=== PATIENT | female | born 1935 | race Caucasian/White ===

== ENCOUNTER 2017-01-13 15:29 | Inpatient (IN) | payer MEDICARE, BC ==
[2017-01-13] MEDS ORDERED: DEXTROSE 50%-WATER SYRINGE 12.5 GM/25 ML DOSE IV PRN (16:07)
[2017-01-13] MEDS ORDERED: DEXTROSE 40% GEL 15 GM TUBE X 2 PO PRN (16:07)
[2017-01-13] MEDS ORDERED: DEXTROSE 40% GEL 15 GM TUBE PO PRN (16:07)
[2017-01-13] MEDS ORDERED: DEXTROSE 50%-WATER SYRINGE 25 GM/50 ML DOSE IV PRN (16:07)
[2017-01-13] MEDS ORDERED: GLUCAGON,HUMAN RECOMB 1 MG INJ IM PRN (16:07)
[2017-01-13] MEDS ORDERED: NORMAL SALINE 1000 ML 1,000 ML IV PRN ×2 (16:08→16:22)
[2017-01-13] MEDS ORDERED: ACETAMINOPHEN 325 MG TABLET PO PRN (16:22)
[2017-01-13] MEDS ORDERED: NITROGLYCERIN 0.4 MG/TAB 25 TAB/BOTTLE SL PRN ×2 (16:27→17:42)
--- NOTE | 2017-01-13 16:47 | PDOC H&P ---
History of Present Illness Admission Date/PCP: 01/13/17 15:29 MASOUD GALEAS, Patient complains of: Nausea dizziness and near passing out History of Present Illness: KENRICK URBINA is a 81 year old female with significant past medical history who was in her usual state of health until apparently today when coming to the office became very nauseous he is oriented she did not have any vomiting. She has been receiving antibiotics as an outpatient for her urinary tract infection which apparently don't seem to be resolving her symptoms. She was seen today in the office was found to be in acute distress and was referred to the hospital for further evaluation and treatment. Most probably related to failure of an outpatient treatment Past Medical History Cardiac Medical History: Reports: Atrial Fibrillation, Congestive Heart Failure , Coronary Artery Disease, Myocardial Infarction, Hyperlipidema, Hypertension Pulmonary Medical History: Reports: Bronchitis Denies: Asthma, Chronic Obstructive Pulmonary Disease (COPD), Pneumonia Neurological Medical History: Denies: Ischemic CVA, Migraine, Seizures Endocrine Medical History: Reports: Diabetes Mellitus Type 2 Renal/ Medical History: Reports: Chronic Kidney Disease Musculoskeltal Medical History: Reports: Arthritis Skin Medical History: Reports: Eczema Psychiatric Medical History: Reports: Depression Hematology: Reports: Anemia Past Surgical History Past Surgical History: Reports: Appendectomy, Cardiac Catheterization - 2011, stents x2, Coronary Stent - x2, Hysterectomy, Tubal Ligation Denies: Adenoidectomy Social History Information Source: Patient Lives with: Family Smoking Status: Never Smoker Frequency of Alcohol Use: None Hx Recreational Drug Use: No Drugs: None Hx Prescription Drug Abuse: No - Advance Directive Resuscitation Status: Do Not Resuscitate Family History Family History: Reviewed & Not Pertinent Parental Family History Reviewed: Yes Children Family History Reviewed: Yes Sibling(s) Family History Reviewed.: Yes Medication/Allergy Home Medications: Amiodarone HCl 200 mg PO BID 08/14/16 Apixaban [Eliquis 2.5 mg Tablet] 2.5 mg PO BID 08/14/16 Aspirin 81 mg PO DAILY 08/14/16 Atorvastatin Calcium [Lipitor 80 mg Tablet] 80 mg PO DAILY 08/14/16 Cyclosporine 0.05% Oph Emulsio [Restasis 0.05% Opthalmic Drope[place]] 1 drop OU DAILY 08/14/16 Furosemide [Lasix 80 mg Tablet] 80 mg PO DAILY 08/14/16 Insulin Detemir [Levemir Insulin 300 Units/3 ml Insuln.pen] 30 unit SUBCUT QHS 08/14/16 Insulin Lispro [Humalog] 10 unit SQ AC 08/14/16 Lansoprazole [Prevacid] 30 mg PO DAILY 08/14/16 Metoprolol Tartrate [Lopressor] 50 mg PO BID 08/14/16 Nitroglycerin 0.4 mg SL Q5M PRN 08/14/16 Sennosides [Senna-Extra] 8.6 mg PO PRN PRN 08/14/16 Sertraline HCl [Zoloft] 100 mg PO DAILY 08/14/16 Furosemide [Lasix 40 mg Tablet] 40 mg PO QHS 11/08/16 Hydralazine HCl [Apresoline 50 mg Tablet] 100 mg PO TID 11/08/16 Lisinopril 5 mg PO QHS 11/08/16 Allergies/Adverse Reactions: celecoxib [From Celebrex] Allergy (Verified 11/08/16 10:14) Review of Systems All systems: as per PMH Physical Exam General appearance: PRESENT: severe distress Head exam: PRESENT: atraumatic Eye exam: PRESENT: conjunctival injection Neck exam: ABSENT: carotid bruit, JVD Respiratory exam: PRESENT: crackles Cardiovascular exam: PRESENT: irregular rhythm Pulses: PRESENT: +1 pedal pulses bilateral Vascular exam: PRESENT: normal capillary refill GI/Abdominal exam: PRESENT: soft, tenderness Extremities exam: PRESENT: tenderness Musculoskeletal exam: PRESENT: ambulatory, other Neurological exam: PRESENT: alert, awake, oriented to time Psychiatric exam: PRESENT: anxious, flat affect Skin exam: PRESENT: abrasion Assessment & Plan - Diagnosis (1) Atrial fibrillation Qualifiers: Atrial fibrillation type: persistent Qualified Code(s): I48.1 - Persistent atrial fibrillation Is this a current diagnosis for this admission?: YesPlan: Placed on the monitor, continue present medications. Obtain EKG (2) Chronic kidney disease (CKD) Qualifiers: Chronic kidney disease stage: stage 3 (moderate) Qualified Code(s): N18.3 - Chronic kidney disease, stage 3 (moderate) Is this a current diagnosis for this admission?: YesPlan: We'll start with IV fluids (3) Urinary tract infection Is this a current diagnosis for this admission?: YesPlan: Not responding and intolerant to oral antibiotics (4) Diabetes mellitus Qualifiers: Diabetes mellitus type: type 2 Diabetes mellitus complication status: with neurologic complications Diabetes mellitus terminologist insulin use: unspecified assisted insulin use status Is this a current diagnosis for this admission?: YesPlan: We'll continue with current insulin treatment (5) Congestive heart failure Qualifiers: Congestive heart failure type: diastolic Congestive heart failure chronicity: chronic Qualified Code(s): I50.32 - Chronic diastolic ( congestive) heart failure Is this a current diagnosis for this admission?: YesPlan: Continue current diuretics (6) Coronary artery disease Qualifiers: Coronary Disease-Associated Artery/Lesion type: [place] artery [place] vs. transplanted heart: [place] heart Associated angina: with stable angina Qualified Code(s): I25.118 - Atherosclerotic heart disease of [place] coronary artery with other forms of angina pectoris Is this a current diagnosis for this admission?: YesPlan: Continue current treatment (7) Vertigo Is this a current diagnosis for this admission?: YesPlan: We'll start on medications (8) Dehydration Plan: We'll start IV fluids
[2017-01-13 17:31] LABS: ALANINE AMINOTRANSFERASE 57 U/L (9-52); ALBUMIN 3.4 g/dL (3.5-5.0); ALKALINE PHOSPHATASE 95 U/L (38-126); ANION GAP 9 (5-19); ASPARTATE AMINO TRANSFERASE 44 U/L (14-36); BILIRUBIN,TOTAL 0.3 mg/dL (0.2-1.3); BLOOD UREA NITROGEN 41 mg/dL (7-20); CARBON DIOXIDE 28 mmol/L (22-30); CHLORIDE 101 mmol/L (98-107); CREATININE RESULT 2.38 mg/dL (0.52-1.25); GLUCOSE 143 mg/dL (75-110); POTASSIUM 3.9 mmol/L (3.6-5.0); SODIUM 137.9 mmol/L (137-145); TOTAL PROTEIN 5.6 g/dL (6.3-8.2)
[2017-01-13] MEDS: INSULIN LISPRO 100 UNIT/ML 3 ML VIAL SUBCUT PRN (17:41)
[2017-01-13] MEDS: APIXABAN 2.5 MG TABLET PO SCH (17:43)
[2017-01-13] MEDS: HYDRALAZINE HCL 50 MG TABLET PO SCH (17:45)
[2017-01-13] MEDS: DOCUSATE SODIUM 100 MG CAPSULE PO SCH (17:46)
[2017-01-13] MEDS ORDERED: (PENDING PHARMACY ID) (Amiodarone Hcl [Amiodarone Hcl] 200 MG) PO SCH (18:00)
[2017-01-13 18:16] LABS: APPEARANCE,URINE CLEAR; BILIRUBIN,URINE NEGATIVE (NEGATIVE); GLUCOSE, URINE NEGATIVE (NEGATIVE); KETONES,URINE NEGATIVE (NEGATIVE); LEUKOCYTE ESTERASE,URINE NEGATIVE (NEGATIVE); NITRITE,URINE NEGATIVE (NEGATIVE); PROTEIN,URINE 100 mg/dL (NEGATIVE); URINE SPECIFIC GRAVITY 1.009; UROBILINOGEN,URINE NEGATIVE mg/dL (<2.0)
[2017-01-13] MEDS: FUROSEMIDE 40 MG TABLET PO SCH (21:32)
[2017-01-13] MEDS: LISINOPRIL 5 MG TABLET PO SCH (21:33)
[2017-01-13] MEDS: ATORVASTATIN CALCIUM 80 MG TABLET PO SCH (21:33)
[2017-01-13] MEDS: AMIODARONE HCL 200 MG TABLET PO SCH (21:34)
[2017-01-13] MEDS: INSULIN DETEMIR 100 UNIT/ML 3 ML PEN SUBCUT SCH (21:36)
--- NOTE | 2017-01-13 21:45 | EKG REPORT ---
SEVERITY:- ABNORMAL ECG - SINUS RHYTHM LEFT BUNDLE BRANCH BLOCK : Confirmed by: Jaret Johnston 13-Jan-2017 21:44:48
[2017-01-13] MEDS ORDERED: METOPROLOL TARTRATE 50 MG TABLET PO SCH (22:00)
[2017-01-13 23:44] LABS: ABSOLUTE EOSINOPHILS # (AUTO) 0.2 10^3/uL (0.0-0.6); ABSOLUTE LYMPHOCYTES (AUTO) 1.4 10^3/uL (0.5-4.7); ABSOLUTE MONOCYTES (AUTO) 0.9 10^3/uL (0.1-1.4); ABSOLUTE NEUT (AUTO) 5.7 10^3/uL (1.7-8.2); BASOPHILS % (AUTO) 0.6 % (0-2); EOSINOPHILS % (AUTO) 2.1 % (0-6); HEMATOCRIT 31.1 % (36.0-47.0); HEMOGLOBIN 10.4 g/dL (12.0-15.5); HGB HCT DIFFERENCE 0.1; LYMPHOCYTES % (AUTO) 17.1 % (13-45); MEAN CORPUSCULAR HEMOGLOBIN 29.7 pg (27.0-33.4); MEAN CORPUSCULAR HGB CONC 33.3 g/dL (32.0-36.0); MEAN CORPUSCULAR VOLUME 89 fl (80-97); MONOCYTES % (AUTO) 10.4 % (3-13); RED BLOOD COUNT 3.49 10^6/uL (3.72-5.28); RED CELL DISTRIBUTION WIDTH 15.9 % (11.5-14.0); SEGMENTED NEUTROPHILS % (AUTO) 69.8 % (42-78); WHITE BLOOD COUNT 8.2 10^3/uL (4.0-10.5)
[2017-01-14 05:32] LABS: ABSOLUTE EOSINOPHILS # (AUTO) 0.2 10^3/uL (0.0-0.6); ABSOLUTE MONOCYTES (AUTO) 0.8 10^3/uL (0.1-1.4); ABSOLUTE NEUT (AUTO) 6.4 10^3/uL (1.7-8.2); BASOPHILS % (AUTO) 0.4 % (0-2); EOSINOPHILS % (AUTO) 2.3 % (0-6); HEMATOCRIT 32.1 % (36.0-47.0); HEMOGLOBIN 10.6 g/dL (12.0-15.5); HGB HCT DIFFERENCE -0.3; LYMPHOCYTES % (AUTO) 12.3 % (13-45); MEAN CORPUSCULAR HGB CONC 33.2 g/dL (32.0-36.0); MEAN CORPUSCULAR VOLUME 90 fl (80-97); MONOCYTES % (AUTO) 9.5 % (3-13); RED BLOOD COUNT 3.55 10^6/uL (3.72-5.28); RED CELL DISTRIBUTION WIDTH 16.2 % (11.5-14.0); SEGMENTED NEUTROPHILS % (AUTO) 75.5 % (42-78); WHITE BLOOD COUNT 8.5 10^3/uL (4.0-10.5)
[2017-01-14 05:42] LABS: ALANINE AMINOTRANSFERASE 51 U/L (9-52); ALBUMIN 2.8 g/dL (3.5-5.0); ALKALINE PHOSPHATASE 72 U/L (38-126); ANION GAP 9 (5-19); ASPARTATE AMINO TRANSFERASE 39 U/L (14-36); BILIRUBIN,TOTAL 0.3 mg/dL (0.2-1.3); BLOOD UREA NITROGEN 39 mg/dL (7-20); CALCIUM 8.5 mg/dL (8.4-10.2); CARBON DIOXIDE 27 mmol/L (22-30); CHLORIDE 106 mmol/L (98-107); CREATININE RESULT 2.18 mg/dL (0.52-1.25); GLUCOSE 84 mg/dL (75-110); POTASSIUM 3.7 mmol/L (3.6-5.0); SODIUM 142.3 mmol/L (137-145); TOTAL PROTEIN 4.7 g/dL (6.3-8.2)
[2017-01-14] MEDS ORDERED: INSULIN LISPRO 10 UNIT SQ SCH (08:00)
[2017-01-14] MEDS ORDERED: NORMAL SALINE 1000 ML 1,000 ML IV PRN (08:28)
[2017-01-14] MEDS ORDERED: NITROGLYCERIN 0.4 MG/TAB 25 TAB/BOTTLE SL PRN (08:28)
[2017-01-14] MEDS ORDERED: MECLIZINE HCL 25 MG TABLET PO PRN (08:28)
[2017-01-14] MEDS ORDERED: (PENDING PHARMACY ID) (Sennosides [Senna] 8.6 MG) PO PRN (08:28)
--- NOTE | 2017-01-14 08:37 | PDOC PROGRESS REPORT ---
Subjective Progress Note for:: 01/14/17 Subjective:: The patient states that she did not have a good night. She has been up and down all night going to the bathroom because of fluids and Lasix. She still has episodes of nausea with dizziness. Physical Exam Vital Signs: Temp Pulse Resp BP Pulse Ox 97.5 F 54 L 18 170/40 H 98 01/14/17 07:50 01/14/17 07:50 01/14/17 07:50 01/14/17 07:50 01/14/17 07:50 Intake & Output 01/13/17 01/14/17 01/15/17 06:59 06:59 06:59 Intake Total 2592 Balance 2592 Weight 84.2 kg General appearance: PRESENT: hard of hearing, mild distress Eye exam: PRESENT: conjunctiva pink Neck exam: ABSENT: carotid bruit, JVD Respiratory exam: PRESENT: crackles Cardiovascular exam: PRESENT: bradycardia Pulses: PRESENT: +1 pedal pulses bilateral Vascular exam: PRESENT: normal capillary refill GI/Abdominal exam: PRESENT: normal bowel sounds, soft Extremities exam: PRESENT: full ROM, tenderness Musculoskeletal exam: PRESENT: ambulatory Neurological exam: PRESENT: alert, awake Results Laboratory Results: 01/14/17 05:12 01/14/17 05:12 01/13/17 01/13/17 01/13/17 16:55 16:55 16:55 WBC Cancelled RBC Cancelled Hgb Cancelled Hct Cancelled MCV Cancelled MCH Cancelled MCHC Cancelled RDW Cancelled Plt Count Cancelled Seg Neutrophils % Cancelled Lymphocytes % Cancelled Monocytes % Cancelled Eosinophils % Cancelled Basophils % Cancelled Absolute Neutrophils Cancelled Absolute Lymphocytes Cancelled Absolute Monocytes Cancelled Absolute Eosinophils Cancelled Absolute Basophils Cancelled Sodium 137.9 Potassium 3.9 Chloride 101 Carbon Dioxide 28 Anion Gap 9 BUN 41 H Creatinine 2.38 H Est GFR ( Amer) 24 L Est GFR (Non-Af Amer) 20 L Glucose 143 H Calcium 9.0 Total Bilirubin 0.3 AST 44 H ALT 57 H Alkaline Phosphatase 95 Total Protein 5.6 L Albumin 3.4 L TSH 1.96 Urine Color Urine Appearance Urine pH Ur Specific [place] Urine Protein Urine Glucose (UA) Urine Ketones Urine Blood Urine Nitrite Ur Leukocyte Esterase Urine WBC (Auto) Urine RBC (Auto) 01/13/17 01/13/17 01/14/17 17:55 23:37 05:12 WBC 8.2 8.5 RBC 3.49 L 3.55 L Hgb 10.4 L 10.6 L Hct 31.1 L 32.1 L MCV 89 90 MCH 29.7 30.0 MCHC 33.3 33.2 RDW 15.9 H 16.2 H Plt Count 170 180 Seg Neutrophils % 69.8 75.5 Lymphocytes % 17.1 12.3 L Monocytes % 10.4 9.5 Eosinophils % 2.1 2.3 Basophils % 0.6 0.4 Absolute Neutrophils 5.7 6.4 Absolute Lymphocytes 1.4 1.0 Absolute Monocytes 0.9 0.8 Absolute Eosinophils 0.2 0.2 Absolute Basophils 0.0 0.0 Sodium Potassium Chloride Carbon Dioxide Anion Gap BUN Creatinine Est GFR ( Amer) Est GFR (Non-Af Amer) Glucose Calcium Total Bilirubin AST ALT Alkaline Phosphatase Total Protein Albumin TSH Urine Color YELLOW Urine Appearance CLEAR Urine pH 6.0 Ur Specific [place] 1.009 Urine Protein 100 H Urine Glucose (UA) NEGATIVE Urine Ketones NEGATIVE Urine Blood NEGATIVE Urine Nitrite NEGATIVE Ur Leukocyte Esterase NEGATIVE Urine WBC (Auto) 3 Urine RBC (Auto) 1 01/14/17 05:12 WBC RBC Hgb Hct MCV MCH MCHC RDW Plt Count Seg Neutrophils % Lymphocytes % Monocytes % Eosinophils % Basophils % Absolute Neutrophils Absolute Lymphocytes Absolute Monocytes Absolute Eosinophils Absolute Basophils Sodium 142.3 Potassium 3.7 Chloride 106 Carbon Dioxide 27 Anion Gap 9 BUN 39 H Creatinine 2.18 H Est GFR ( Amer) 26 L Est GFR (Non-Af Amer) 22 L Glucose 84 Calcium 8.5 Total Bilirubin 0.3 AST 39 H ALT 51 Alkaline Phosphatase 72 Total Protein 4.7 L Albumin 2.8 L TSH Urine Color Urine Appearance Urine pH Ur Specific [place] Urine Protein Urine Glucose (UA) Urine Ketones Urine Blood Urine Nitrite Ur Leukocyte Esterase Urine WBC (Auto) Urine RBC (Auto) Assessment & Plan - Diagnosis (1) Atrial fibrillation Qualifiers: Atrial fibrillation type: persistent Qualified Code(s): I48.1 - Persistent atrial fibrillation Is this a current diagnosis for this admission?: YesPlan: Presently bradycardic possibly secondary to combination of amiodarone and metoprolol. We will adjust medication dosages (2) Chronic kidney disease (CKD) Qualifiers: Chronic kidney disease stage: stage 3 (moderate) Qualified Code(s): N18.3 - Chronic kidney disease, stage 3 (moderate) Is this a current diagnosis for this admission?: YesPlan: Improved slightly with rehydration (3) Urinary tract infection Is this a current diagnosis for this admission?: YesPlan: Seemed to have resolved with antibiotics (4) Diabetes mellitus Qualifiers: Diabetes mellitus type: type 2 Diabetes mellitus complication status: with neurologic complications Diabetes mellitus terminologist insulin use: unspecified senior living insulin use status Is this a current diagnosis for this admission?: YesPlan: Controlled with insulin (5) Congestive heart failure Qualifiers: Congestive heart failure type: diastolic Congestive heart failure chronicity: chronic Qualified Code(s): I50.32 - Chronic diastolic ( congestive) heart failure Is this a current diagnosis for this admission?: Yes (6) Coronary artery disease Qualifiers: Coronary Disease-Associated Artery/Lesion type: [place] artery [place] vs. transplanted heart: [place] heart Associated angina: with stable angina Qualified Code(s): I25.118 - Atherosclerotic heart disease of [place] coronary artery with other forms of angina pectoris Is this a current diagnosis for this admission?: YesPlan: Controlled with medications. (7) Vertigo Is this a current diagnosis for this admission?: YesPlan: Recurrent. Possibly related to recent urinary tract infection with nausea and possible bradycardia induced by medication but the labyrinthitis cannot be ruled out (8) Dehydration Plan: Improved with rehydration (9) Hypertension Qualifiers: Hypertension type: renovascular hypertension Qualified Code(s): I15.0 - Renovascular hypertension Is this a current diagnosis for this admission?: YesPlan: We will add clonidine
[2017-01-14] MEDS ORDERED: 1/2 NORMAL SALINE 1,000 ML IV PRN (08:46)
[2017-01-14] MEDS ORDERED: SENNOSIDES/DOCUSATE 8.6-50 MG 1 EACH TABLET PO PRN (08:52)
[2017-01-14] MEDS ORDERED: FUROSEMIDE 80 MG TABLET PO SCH (10:00)
[2017-01-14] MEDS ORDERED: AMIODARONE HCL 200 MG TABLET PO SCH (10:00)
[2017-01-14] MEDS ORDERED: APIXABAN 2.5 MG TABLET PO SCH (10:00)
[2017-01-14] MEDS ORDERED: LANSOPRAZOLE 30 MG TAB.RAP.DR PO SCH (10:00)
[2017-01-14] MEDS ORDERED: METOPROLOL TARTRATE 50 MG TABLET PO SCH (10:00)
[2017-01-14] MEDS ORDERED: (PENDING PHARMACY ID) (Lansoprazole [Prevacid] 30 MG) PO SCH (10:00)
[2017-01-14] MEDS ORDERED: HYDRALAZINE HCL 50 MG TABLET PO SCH (10:00)
[2017-01-14] MEDS ORDERED: CYCLOSPORINE 0.05% OPH EMULSIO 0.4 ML DROPERETTE OP SCH (10:00)
[2017-01-14] MEDS ORDERED: ASPIRIN 81 MG TABLET, ENT COATED PO SCH (10:00)
[2017-01-14] MEDS ORDERED: INSULIN LISPRO 100 UNIT/ML 3 ML VIAL SUBCUT SCH (11:00)
[2017-01-14] MEDS: APIXABAN 2.5 MG TABLET PO SCH ×2 (11:07→19:21)
[2017-01-14] MEDS: LANSOPRAZOLE 30 MG TAB.RAP.DR PO SCH (11:07)
[2017-01-14] MEDS: HYDRALAZINE HCL 50 MG TABLET PO SCH ×2 (11:08→19:22)
[2017-01-14] MEDS: ASPIRIN 81 MG TABLET, CHEWABLE PO SCH (11:08)
[2017-01-14] MEDS: FUROSEMIDE 80 MG TABLET PO SCH (11:09)
[2017-01-14] MEDS: SERTRALINE HCL 50 MG TABLET PO SCH (11:09)
[2017-01-14] MEDS: DOCUSATE SODIUM 100 MG CAPSULE PO SCH ×2 (11:10→19:22)
[2017-01-14] MEDS: CYCLOSPORINE 0.05% OPH EMULSIO 0.4 ML DROPERETTE OU SCH (11:10)
[2017-01-14] MEDS: INSULIN LISPRO 100 UNIT/ML 3 ML VIAL SUBCUT SCH ×3 (11:14→19:33)
[2017-01-14] MEDS: AMIODARONE HCL 200 MG TABLET PO SCH (13:00)
--- NOTE | 2017-01-14 16:37 | Physician Advisory Note ---
Physician Advisor ProgressNote .: [facility] I have [facility] the medical record for this patient. Physician Advisor Statement: Nice documentation of 'chronic diastolic CHF', 'persistent Afib'. Possible documentation opportunities if attending agrees: 1. "Principal Dx": H&P & notes so far state "persistent Afib" as 1st dx ( which is taken as Principal Dx, the reason for pt needing to be in hospital, unless otherwise specified). - Please make sure to list as Dx #1 the dx that best explains, after study, the reason for keeping pt in hospital the first day. 2. "Chronic Kidney Disease Stage IV" (GFR at [facility] has been persistently 18-28 for the last 12mo. If her outpt baseline is not at least 30, she meets criteria for dx of stage IV currently.) 3. Medical necessity: please "paint the picture" with your documentation each day so a non-MD reviewer can understand why pt can't be managed outpt. - Please include the bolded points below under "Status" with which you agree based on your intimate understanding of this particular case. Discussion: 81yo female w/ chronic co-morbidities including chronic Afib, chronic diastolic CHF, CAD, HTN, DM-2, CKD (stage 4?) - presented 01/13 PM due to "severe distress", with UTI sx not resolving on outpt po abx tx. (+) HR 57, BP 177/46, crackles, irreg heartbeat, (+)anx/flat affect. WBC 8.2, Hgb 10.4, RDW up, AST 44, ALT 57, U/A w/(+)protein, sp grav 1.009, BUN 41, Cr 2.38, GFR <30 Attending ordered tele, EKG, I/Os, daily wts, bedrest, ur cx, labs for 01/15, O2 2L, NS @125, metoprolol at her usual 50mg bid & Amio at her usual 200mg bid, Lasix 40mg qhs, lisnopril 5mg qhs. Status: Elderly pt with serious chronic co-morbidities of chronic Afib, chronic diastolic CHF, CAD, HTN, DM-2, CKD (stage 4?) brought in initially due to "severe distress", with UTI sx not resolving on outpt po abx tx. She was not given any IV abx at time of adm because . Given IVF @125, while continued on lower than usual dose of Lasix. This was in hopes of improving her dizziness & supporting her fluid status while her nausea was likely to keep po intake low, but could certainly produce risk of acute CHF exacerb - so needed to be closely monitored. Although one might expect the end result would be increased overall fluid volume after 1 night of this tx, pt continued to have nausea & dizziness with distress. She had noticeable & persistent bradycardia in the 50s noted. She was on at least 2 meds that can slow the HR. She needs control of her Afib, as well as of her HTN which is currently not optimally controlled despite multiple agents, while allowing higher HR in hopes of improving her ongoing sx. On 01/14, attending has cut dose of metoprolol in half, while adding clonidine ( which can also slow HR but hopefully less so), increased Lasix back to her usual dose, and cut rate of IVF to 75, while keeping IV hydralazine PRN available for BP over & above her usual other BP meds. This is a 'fine-tuning on multiple levels at the same time approach', which speaks to this attending's finesse with complex pt problems but also increases the need for very close monitoring for responses. -Persistent symptomatic bradycardia can cause dizziness, presyncope, & syncope, which in this pt could produce significant trauma including devastating hip fx. -This pt's HTN is already close to hypertensive crisis levels, and a further worsening in BP, which most certainly could occur with needed cut in metoprolol dose, could produce such decompensation as nausea/vomiting, blurry vision, acute KS, acute CHF, acute CVA, among other problems. Attending will want to watch effect of today's Rx changes on her HR & BP closely while guarding against further such downturns. This is NOT a typical low-complexity syncope/nausea/dizziness case that can be expected to be kept overnight on Outpt Obs and then safely sent home the next day. Tx for at least a 2nd MN in inpatient hospital setting is medically reasonable & necessary to protect pt's health, safety, & medical condition. Appropriate for Inpt status. Thanks for your help with documentation accuracy/specificity improvement! Brit Jung MD [facility] Physician Advisor, Fellow of Hospital Medicine
[2017-01-14] MEDS ORDERED: ATORVASTATIN CALCIUM 80 MG TABLET PO SCH (18:00)
[2017-01-14] MEDS ORDERED: FUROSEMIDE 40 MG TABLET PO SCH (18:00)
[2017-01-14] MEDS: CLONIDINE HCL 0.2 MG TABLET PO SCH (19:33)
[2017-01-14] MEDS ORDERED: INSULIN DETEMIR 100 UNIT/ML 3 ML PEN SUBCUT SCH (22:00)
[2017-01-14] MEDS ORDERED: LISINOPRIL 5 MG TABLET PO SCH (22:00)
[2017-01-15] MEDS: ATORVASTATIN CALCIUM 80 MG TABLET PO SCH ×2 (00:38→21:44)
[2017-01-15] MEDS: AMIODARONE HCL 200 MG TABLET PO SCH ×3 (00:39→21:44)
[2017-01-15] MEDS: LISINOPRIL 5 MG TABLET PO SCH ×2 (00:39→21:46)
[2017-01-15] MEDS: CLONIDINE HCL 0.2 MG TABLET PO SCH ×4 (00:39→21:45)
[2017-01-15] MEDS: METOPROLOL TARTRATE 25 MG TABLET PO SCH ×3 (00:40→21:45)
[2017-01-15] MEDS: FUROSEMIDE 40 MG TABLET PO SCH ×2 (00:40→21:45)
[2017-01-15] MEDS: INSULIN DETEMIR 100 UNIT/ML 3 ML PEN SUBCUT SCH ×2 (00:41→22:51)
[2017-01-15] MEDS: INSULIN LISPRO 100 UNIT/ML 3 ML VIAL SUBCUT PRN (00:42)
[2017-01-15 05:23] LABS: ABSOLUTE EOSINOPHILS # (AUTO) 0.1 10^3/uL (0.0-0.6); ABSOLUTE NEUT (AUTO) 7.4 10^3/uL (1.7-8.2); BASOPHILS % (AUTO) 0.4 % (0-2); EOSINOPHILS % (AUTO) 1.3 % (0-6); HEMATOCRIT 31.7 % (36.0-47.0); HEMOGLOBIN 10.7 g/dL (12.0-15.5); HGB HCT DIFFERENCE 0.4; LYMPHOCYTES % (AUTO) 10.5 % (13-45); MEAN CORPUSCULAR HEMOGLOBIN 29.9 pg (27.0-33.4); MEAN CORPUSCULAR HGB CONC 33.7 g/dL (32.0-36.0); MEAN CORPUSCULAR VOLUME 89 fl (80-97); RED BLOOD COUNT 3.57 10^6/uL (3.72-5.28); RED CELL DISTRIBUTION WIDTH 15.9 % (11.5-14.0); SEGMENTED NEUTROPHILS % (AUTO) 77.8 % (42-78); WHITE BLOOD COUNT 9.6 10^3/uL (4.0-10.5)
[2017-01-15 05:37] LABS: ALANINE AMINOTRANSFERASE 46 U/L (9-52); ALBUMIN 2.7 g/dL (3.5-5.0); ALKALINE PHOSPHATASE 74 U/L (38-126); ANION GAP 9 (5-19); ASPARTATE AMINO TRANSFERASE 37 U/L (14-36); BILIRUBIN,TOTAL 0.4 mg/dL (0.2-1.3); BLOOD UREA NITROGEN 38 mg/dL (7-20); CALCIUM 8.6 mg/dL (8.4-10.2); CARBON DIOXIDE 27 mmol/L (22-30); CHLORIDE 104 mmol/L (98-107); CREATININE RESULT 1.93 mg/dL (0.52-1.25); GLUCOSE 87 mg/dL (75-110); MAGNESIUM 1.7 mg/dL (1.6-2.3); POTASSIUM 3.5 mmol/L (3.6-5.0); SODIUM 139.5 mmol/L (137-145); TOTAL PROTEIN 4.7 g/dL (6.3-8.2)
[2017-01-15] MEDS: HYDRALAZINE HCL 50 MG TABLET PO SCH ×3 (09:47→17:44)
[2017-01-15] MEDS: FUROSEMIDE 80 MG TABLET PO SCH (09:58)
[2017-01-15] MEDS: DOCUSATE SODIUM 100 MG CAPSULE PO SCH ×2 (09:58→17:44)
[2017-01-15] MEDS: POTASSIUM CHLORIDE 10 MEQ TABLET.SA PO SCH ×2 (09:58→21:45)
[2017-01-15] MEDS: APIXABAN 2.5 MG TABLET PO SCH ×2 (09:59→17:45)
[2017-01-15] MEDS: SERTRALINE HCL 50 MG TABLET PO SCH (09:59)
[2017-01-15] MEDS: LANSOPRAZOLE 30 MG TAB.RAP.DR PO SCH (09:59)
[2017-01-15] MEDS: ASPIRIN 81 MG TABLET, CHEWABLE PO SCH (10:01)
[2017-01-15] MEDS: CYCLOSPORINE 0.05% OPH EMULSIO 0.4 ML DROPERETTE OU SCH (10:05)
[2017-01-15] MEDS: INSULIN LISPRO 100 UNIT/ML 3 ML VIAL SUBCUT SCH ×3 (10:06→17:44)
--- NOTE | 2017-01-15 11:33 | PDOC PROGRESS REPORT ---
Subjective Progress Note for:: 01/15/17 Subjective:: The patient is complaining of not feeling well. She states that she did not sleep well at night because that were waking her up. She states that the dizziness seemed to be improving. She denies any further nausea or vomiting. She has been up in the chair yesterday and have walked to the bathroom Physical Exam Vital Signs: Temp Pulse Resp BP Pulse Ox 97.6 F 51 L 16 135/44 H 96 01/15/17 07:41 01/15/17 07:41 01/15/17 07:41 01/15/17 07:41 01/15/17 07:41 Intake & Output 01/14/17 01/15/17 01/16/17 06:59 06:59 06:59 Intake Total 2592 2097 Balance 2592 2097 Weight 84.2 kg 82.3 kg General appearance: PRESENT: mild distress Head exam: PRESENT: atraumatic Eye exam: PRESENT: conjunctiva pink Neck exam: ABSENT: carotid bruit, JVD Respiratory exam: PRESENT: crackles Cardiovascular exam: PRESENT: bradycardia, irregular rhythm Pulses: PRESENT: normal carotid pulses Vascular exam: PRESENT: normal capillary refill GI/Abdominal exam: PRESENT: normal bowel sounds, soft Extremities exam: PRESENT: tenderness Musculoskeletal exam: PRESENT: tenderness, other Neurological exam: PRESENT: alert, awake Results Laboratory Results: 01/15/17 04:46 01/15/17 04:46 01/15/17 01/15/17 04:46 04:46 WBC 9.6 RBC 3.57 L Hgb 10.7 L Hct 31.7 L MCV 89 MCH 29.9 MCHC 33.7 RDW 15.9 H Plt Count 175 Seg Neutrophils % 77.8 Lymphocytes % 10.5 L Monocytes % 10.0 Eosinophils % 1.3 Basophils % 0.4 Absolute Neutrophils 7.4 Absolute Lymphocytes 1.0 Absolute Monocytes 1.0 Absolute Eosinophils 0.1 Absolute Basophils 0.0 Sodium 139.5 Potassium 3.5 L Chloride 104 Carbon Dioxide 27 Anion Gap 9 BUN 38 H Creatinine 1.93 H Est GFR ( Amer) 30 L Est GFR (Non-Af Amer) 25 L Glucose 87 Calcium 8.6 Magnesium 1.7 Total Bilirubin 0.4 AST 37 H ALT 46 Alkaline Phosphatase 74 Total Protein 4.7 L Albumin 2.7 L Assessment & Plan - Diagnosis (1) Atrial fibrillation Qualifiers: Atrial fibrillation type: persistent Qualified Code(s): I48.1 - Persistent atrial fibrillation Is this a current diagnosis for this admission?: YesPlan: Presently bradycardic possibly secondary to combination of amiodarone and metoprolol. 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 vs. transplanted heart: [place] heart Associated angina: with stable angina Qualified Code(s): I25.118 - Atherosclerotic heart disease of [place] coronary artery with other forms of angina pectoris Is this a current diagnosis for this admission?: YesPlan: Controlled with medications. (7) Vertigo Is this a current diagnosis for this admission?: YesPlan: Recurrent. Possibly related to recent urinary tract infection with nausea and possible bradycardia induced by medication but the labyrinthitis cannot be ruled out (8) Dehydration Plan: After significant improvement we will stop the IV fluids (9) Hypertension Qualifiers: Hypertension type: renovascular hypertension Qualified Code(s): I15.0 - Renovascular hypertension Is this a current diagnosis for this admission?: YesPlan: Much better controlled with adjustment on blood pressure medications (10) Symptomatic bradycardia Is this a current diagnosis for this admission?: YesPlan: The bradycardia persisted even after reducing the the Toprol all to half the dose. We'll decreased the amiodarone to 100 mg twice a day
[2017-01-16] MEDS: CLONIDINE HCL 0.2 MG TABLET PO SCH ×3 (05:10→23:00)
[2017-01-16 06:22] LABS: ABSOLUTE EOSINOPHILS # (AUTO) 0.2 10^3/uL (0.0-0.6); ABSOLUTE LYMPHOCYTES (AUTO) 1.2 10^3/uL (0.5-4.7); ABSOLUTE MONOCYTES (AUTO) 0.7 10^3/uL (0.1-1.4); ABSOLUTE NEUT (AUTO) 4.4 10^3/uL (1.7-8.2); BASOPHILS % (AUTO) 0.5 % (0-2); EOSINOPHILS % (AUTO) 3.2 % (0-6); HEMATOCRIT 32.1 % (36.0-47.0); HEMOGLOBIN 10.6 g/dL (12.0-15.5); HGB HCT DIFFERENCE -0.3; LYMPHOCYTES % (AUTO) 17.7 % (13-45); MEAN CORPUSCULAR HEMOGLOBIN 29.6 pg (27.0-33.4); MEAN CORPUSCULAR HGB CONC 32.9 g/dL (32.0-36.0); MEAN CORPUSCULAR VOLUME 90 fl (80-97); MONOCYTES % (AUTO) 10.4 % (3-13); RED BLOOD COUNT 3.57 10^6/uL (3.72-5.28); RED CELL DISTRIBUTION WIDTH 16.1 % (11.5-14.0); SEGMENTED NEUTROPHILS % (AUTO) 68.2 % (42-78); WHITE BLOOD COUNT 6.5 10^3/uL (4.0-10.5)
[2017-01-16 06:42] LABS: BLOOD UREA NITROGEN 44 mg/dL (7-20); CALCIUM 8.3 mg/dL (8.4-10.2); CARBON DIOXIDE 31 mmol/L (22-30); CREATININE RESULT 2.15 mg/dL (0.52-1.25); GLUCOSE 152 mg/dL (75-110)
[2017-01-16 06:50] LABS: CHLORIDE 102 mmol/L (98-107); SODIUM 136.7 mmol/L (137-145)
[2017-01-16 06:55] LABS: ANION GAP 4 (5-19)
--- NOTE | 2017-01-16 08:40 | PDOC PROGRESS REPORT ---
Subjective Progress Note for:: 01/16/17 Subjective:: The patient states to feel much better. She was able to ambulate very little discomfort of dizziness and nausea. Heart rate is still in the mid 50s. She denies any syncope. Physical Exam Vital Signs: Temp Pulse Resp BP Pulse Ox 97.7 F 55 L 19 160/44 H 95 01/16/17 07:50 01/16/17 07:50 01/16/17 07:50 01/16/17 07:50 01/16/17 07:50 Intake & Output 01/15/17 01/16/17 01/17/17 06:59 06:59 06:59 Intake Total 2096 1170 Balance 2096 1170 Weight 82.3 kg 82 kg General appearance: PRESENT: mild distress Head exam: PRESENT: atraumatic Eye exam: PRESENT: conjunctiva pink Neck exam: ABSENT: carotid bruit Respiratory exam: PRESENT: clear to auscultation gabriel Cardiovascular exam: PRESENT: bradycardia Pulses: PRESENT: +1 pedal pulses bilateral GI/Abdominal exam: PRESENT: normal bowel sounds, soft Extremities exam: PRESENT: full ROM, tenderness Musculoskeletal exam: PRESENT: ambulatory Neurological exam: PRESENT: alert, awake Results Laboratory Results: 01/16/17 05:56 01/16/17 05:56 01/16/17 01/16/17 05:56 05:56 WBC 6.5 RBC 3.57 L Hgb 10.6 L Hct 32.1 L MCV 90 MCH 29.6 MCHC 32.9 RDW 16.1 H Plt Count 159 Seg Neutrophils % 68.2 Lymphocytes % 17.7 Monocytes % 10.4 Eosinophils % 3.2 Basophils % 0.5 Absolute Neutrophils 4.4 Absolute Lymphocytes 1.2 Absolute Monocytes 0.7 Absolute Eosinophils 0.2 Absolute Basophils 0.0 Sodium 136.7 L Potassium 4.0 Chloride 102 Carbon Dioxide 31 H Anion Gap 4 L BUN 44 H Creatinine 2.15 H Est GFR ( Amer) 27 L Est GFR (Non-Af Amer) 22 L Glucose 152 H Calcium 8.3 L 01/13/17 17:55 Clean Catch Midstream Urine Culture - Final Mixed Urogenital Carey Assessment & Plan - Diagnosis (1) Atrial fibrillation Qualifiers: Atrial fibrillation type: persistent Qualified Code(s): I48.1 - Persistent atrial fibrillation Is this a current diagnosis for this admission?: YesPlan: Presently in sinus bradycardia possibly related to medications. (2) Chronic kidney disease (CKD) Qualifiers: Chronic kidney disease stage: stage 3 (moderate) Qualified Code(s): N18.3 - Chronic kidney disease, stage 3 (moderate) Is this a current diagnosis for this admission?: YesPlan: Stable with readjustment of medications. (3) Urinary tract infection Is this a current diagnosis for this admission?: Yes (4) Diabetes mellitus Qualifiers: Diabetes mellitus type: type 2 Diabetes mellitus complication status: with neurologic complications Diabetes mellitus senior living insulin use: unspecified equipment operator intermodal yard insulin use status Is this a current diagnosis for this admission?: YesPlan: Controlled with insulin (5) Congestive heart failure Qualifiers: Congestive heart failure type: diastolic Congestive heart failure chronicity: chronic Qualified Code(s): I50.32 - Chronic diastolic ( congestive) heart failure Is this a current diagnosis for this admission?: Yes (6) Coronary artery disease Qualifiers: Coronary Disease-Associated Artery/Lesion type: [place] artery [place] vs. transplanted heart: [place] heart Associated angina: with stable angina Qualified Code(s): I25.118 - Atherosclerotic heart disease of [place] coronary artery with other forms of angina pectoris Is this a current diagnosis for this admission?: Yes (7) Vertigo Is this a current diagnosis for this admission?: YesPlan: Improving (9) Hypertension Qualifiers: Hypertension type: renovascular hypertension Qualified Code(s): I15.0 - Renovascular hypertension Is this a current diagnosis for this admission?: Yes (10) Symptomatic bradycardia Is this a current diagnosis for this admission?: YesPlan: Still bradycardic. Were attempting to adjust medications.
[2017-01-16] MEDS ORDERED: FUROSEMIDE 80 MG TABLET PO SCH (08:41)
[2017-01-16] MEDS: CYCLOSPORINE 0.05% OPH EMULSIO 0.4 ML DROPERETTE OU SCH (09:01)
[2017-01-16] MEDS: METOPROLOL TARTRATE 25 MG TABLET PO SCH ×2 (09:02→23:10)
[2017-01-16] MEDS: HYDRALAZINE HCL 50 MG TABLET PO SCH ×3 (09:02→18:17)
[2017-01-16] MEDS: SERTRALINE HCL 50 MG TABLET PO SCH (09:03)
[2017-01-16] MEDS: POTASSIUM CHLORIDE 10 MEQ TABLET.SA PO SCH ×2 (09:05→23:01)
[2017-01-16] MEDS: LANSOPRAZOLE 30 MG TAB.RAP.DR PO SCH (09:05)
[2017-01-16] MEDS: ASPIRIN 81 MG TABLET, CHEWABLE PO SCH (09:05)
[2017-01-16] MEDS: APIXABAN 2.5 MG TABLET PO SCH ×2 (09:06→18:18)
[2017-01-16] MEDS: FUROSEMIDE 40 MG TABLET PO SCH ×2 (09:06→23:01)
[2017-01-16] MEDS: DOCUSATE SODIUM 100 MG CAPSULE PO SCH ×2 (09:09→18:21)
[2017-01-16] MEDS ORDERED: AMIODARONE HCL 200 MG TABLET PO SCH (10:00)
--- NOTE | 2017-01-16 11:16 | EKG REPORT ---
SEVERITY:- ABNORMAL ECG - SINUS RHYTHM LEFT BUNDLE BRANCH BLOCK : Confirmed by: Jaret Johnston 16-Jan-2017 11:15:00
[2017-01-16] MEDS: INSULIN LISPRO 100 UNIT/ML 3 ML VIAL SUBCUT SCH ×3 (11:56→16:31)
[2017-01-16] MEDS: INSULIN LISPRO 100 UNIT/ML 3 ML VIAL SUBCUT PRN (14:12)
[2017-01-16] MEDS: LISINOPRIL 5 MG TABLET PO SCH (23:01)
[2017-01-16] MEDS: INSULIN DETEMIR 100 UNIT/ML 3 ML PEN SUBCUT SCH (23:03)
[2017-01-16] MEDS: ATORVASTATIN CALCIUM 80 MG TABLET PO SCH (23:03)
[2017-01-17] MEDS: CLONIDINE HCL 0.2 MG TABLET PO SCH (06:05)
[2017-01-17 07:20] LABS: ALANINE AMINOTRANSFERASE 59 U/L (9-52); ALBUMIN 2.8 g/dL (3.5-5.0); ALKALINE PHOSPHATASE 81 U/L (38-126); ANION GAP 9 (5-19); ASPARTATE AMINO TRANSFERASE 51 U/L (14-36); BILIRUBIN,TOTAL 0.4 mg/dL (0.2-1.3); BLOOD UREA NITROGEN 47 mg/dL (7-20); CALCIUM 8.6 mg/dL (8.4-10.2); CARBON DIOXIDE 28 mmol/L (22-30); CHLORIDE 99 mmol/L (98-107); CREATININE RESULT 2.03 mg/dL (0.52-1.25); GLUCOSE 93 mg/dL (75-110); POTASSIUM 4.1 mmol/L (3.6-5.0); SODIUM 135.7 mmol/L (137-145)
--- NOTE | 2017-01-17 08:51 | PDOC PROGRESS REPORT ---
Subjective Progress Note for:: 01/17/17 Subjective:: The patient is complaining of not feeling well. Her heart rate continues to be in the mid 40s. Discussed the option of seeing a die cleaner. Physical Exam Vital Signs: Temp Pulse Resp BP Pulse Ox 97.5 F 45 L 16 107/47 L 94 01/17/17 07:35 01/17/17 07:35 01/17/17 07:35 01/17/17 07:35 01/17/17 07:35 Intake & Output 01/16/17 01/17/17 01/18/17 06:59 06:59 06:59 Intake Total 1170 852 Balance 1170 852 Weight 82 kg 82.7 kg General appearance: PRESENT: mild distress Head exam: PRESENT: atraumatic Eye exam: PRESENT: conjunctiva pink Neck exam: ABSENT: carotid bruit, JVD Respiratory exam: PRESENT: clear to auscultation gabriel Cardiovascular exam: PRESENT: bradycardia Pulses: PRESENT: +1 pedal pulses bilateral GI/Abdominal exam: PRESENT: normal bowel sounds, soft Extremities exam: PRESENT: full ROM Musculoskeletal exam: PRESENT: tenderness Neurological exam: PRESENT: alert, awake Results Laboratory Results: 01/16/17 05:56 01/17/17 06:35 01/17/17 06:35 Sodium 135.7 L Potassium 4.1 Chloride 99 Carbon Dioxide 28 Anion Gap 9 BUN 47 H Creatinine 2.03 H Est GFR ( Amer) 28 L Est GFR (Non-Af Amer) 23 L Glucose 93 Calcium 8.6 Total Bilirubin 0.4 AST 51 H ALT 59 H Alkaline Phosphatase 81 Total Protein 5.0 L Albumin 2.8 L Assessment & Plan - Diagnosis (1) Atrial fibrillation Qualifiers: Atrial fibrillation type: persistent Qualified Code(s): I48.1 - Persistent atrial fibrillation Is this a current diagnosis for this admission?: YesPlan: Presently in sinus bradycardia possibly related to medications. (2) Chronic kidney disease (CKD) Qualifiers: Chronic kidney disease stage: stage 3 (moderate) Qualified Code(s): N18.3 - Chronic kidney disease, stage 3 (moderate) Is this a current diagnosis for this admission?: YesPlan: Stable with readjustment of medications. (3) Urinary tract infection Is this a current diagnosis for this admission?: Yes (4) Diabetes mellitus Qualifiers: Diabetes mellitus type: type 2 Diabetes mellitus complication status: with neurologic complications Diabetes mellitus long-term insulin use: unspecified long-term insulin use status Is this a current diagnosis for this admission?: YesPlan: Controlled with insulin (5) Congestive heart failure Qualifiers: Congestive heart failure type: diastolic Congestive heart failure chronicity: chronic Qualified Code(s): I50.32 - Chronic diastolic ( congestive) heart failure Is this a current diagnosis for this admission?: Yes (6) Coronary artery disease Qualifiers: Coronary Disease-Associated Artery/Lesion type: [place] artery [place] vs. transplanted heart: [place] heart Associated angina: with stable angina Qualified Code(s): I25.118 - Atherosclerotic heart disease of [place] coronary artery with other forms of angina pectoris Is this a current diagnosis for this admission?: Yes (7) Vertigo Is this a current diagnosis for this admission?: YesPlan: Improving (9) Hypertension Qualifiers: Hypertension type: renovascular hypertension Qualified Code(s): I15.0 - Renovascular hypertension Is this a current diagnosis for this admission?: YesPlan: We'll might need to readjust the medications since clonidine has been stopped and metoprolol has been decreased. (10) Symptomatic bradycardia Is this a current diagnosis for this admission?: YesPlan: Even after decreasing the dose of amiodarone and metoprolol the patient continues to be bradycardic. We will DC completely amiodarone decreased the dose of metoprolol and stop clonidine which might have some component of bradycardia. We'll discuss with cardiology about further evaluation and possible transfer for EP
[2017-01-17] MEDS ORDERED: METOPROLOL TARTRATE 25 MG TABLET PO SCH (10:00)
[2017-01-17] MEDS: INSULIN LISPRO 100 UNIT/ML 3 ML VIAL SUBCUT SCH ×3 (11:46→15:10)
[2017-01-17] MEDS: HYDRALAZINE HCL 50 MG TABLET PO SCH ×3 (11:46→18:24)
[2017-01-17] MEDS: FUROSEMIDE 40 MG TABLET PO SCH ×2 (11:47→22:19)
[2017-01-17] MEDS: LANSOPRAZOLE 30 MG TAB.RAP.DR PO SCH (11:47)
[2017-01-17] MEDS: ASPIRIN 81 MG TABLET, CHEWABLE PO SCH (11:48)
[2017-01-17] MEDS: SERTRALINE HCL 50 MG TABLET PO SCH (11:48)
[2017-01-17] MEDS: DOCUSATE SODIUM 100 MG CAPSULE PO SCH ×2 (11:48→18:23)
[2017-01-17] MEDS: APIXABAN 2.5 MG TABLET PO SCH ×2 (11:50→18:24)
[2017-01-17] MEDS: CYCLOSPORINE 0.05% OPH EMULSIO 0.4 ML DROPERETTE OU SCH (11:50)
[2017-01-17] MEDS: POTASSIUM CHLORIDE 10 MEQ TABLET.SA PO SCH ×2 (11:50→22:23)
--- NOTE | 2017-01-17 21:23 | CONSULTATION REPORT E ---
Consultation Report NAME: KENRICK URBINA : 1935 AGE: 81Y DATE: 01/17/2017 317 A TO: ESTER MARINELLI M.D. FROM: MASOUD GALEAS M.D. Requesting Physician REASON FOR CONSULT: Bradycardia. HISTORY OF PRESENT ILLNESS: The patient is an 81-year-old female with known history of coronary artery disease, hypertension, chronic kidney disease stage 4 and a history of paroxysmal atrial fibrillation, was seen by Dr. Galeas in the office for intractable nausea without vomiting. She was being treated for urinary tract infection. The patient also states that she had leg edema and also dyspnea on exertion but no chest pain or discomfort. She has no PND but did have some orthopnea which is now improved. The patient's nausea is improved, although she has some mild nausea, and the patient was found to be in sinus bradycardia with the patient's heart rate going into the high 30s when she is asleep and the heart rate remaining in the high 40s when she is awake with a stable blood pressure and the patient being asymptomatic. Note, initially the clonidine was stopped and her amiodarone was decreased to 100 mg p.o. b.i.d., but the patient continued to be bradycardic, and so all of these 3 medications have been stopped. The patient again denies any chest pain or discomfort. PAST MEDICAL HISTORY: 1. Positive for history of atrial fibrillation. She states that she had cardioversion about 2 to 3 years ago and remained in sinus rhythm. Subsequently, the patient was seen by me in May of 2016, and since her DLCO was 54% of predicted I decreased her amiodarone to 100 mg p.o. daily. But subsequently in October, she had some chest pain and had a cardiac catheterization which showed that the previously placed stent in the LAD was patent. She also was in atrial fibrillation, and she had a TE-guided cardioversion and was placed back on amiodarone 200 mg p.o. b.i.d. 2. The patient also has a history of hypertension. 3. She has a history of diabetes mellitus type 2, insulin dependent and with renal complications. 4. She has a history of MA, stent of stent in the LAD with no recent angina symptoms. Her cardiac catheterization in October of 2016 as per the [id number] showed patent arteries. 5. She has also a history of degenerative joint disease. 6. She also has a history of vertigo which is helped with meclizine. 7. She, as mentioned earlier, has a history of chronic kidney disease. It was earlier stage 3, now it is stage 4. 8. She has no history of TIA or CVA. 9. She has a history of depression. FAMILY HISTORY: Positive for cancer, coronary artery disease, and diabetes mellitus. SOCIAL HISTORY: She is a former smoker. She quit smoking in 1982. PAST SURGICAL HISTORY: Includes: 1. Appendectomy. 2. Cardiac catheterization. 3. Cataract surgery. 4. Cholecystectomy. 5. Coronary artery catheterization and stenting. 6. Hysterectomy. 7. Ovarian surgery. 8. Tubal ligation. 9. Tubal removal. MEDICATIONS: Include: 1. Tylenol 650 mg p.o. q.4 h. p.r.n. 2. Eliquis 2.5 mg p.o. b.i.d. 3. Aspirin 81 mg p.o. daily. 4. Atorvastatin 80 mg p.o. at bedtime. 5. Cyclosporine 0.05% one drop both eyes daily. 6. Dextrose glucose 40%, 15 grams and 30 grams p.o. respectively for hypoglycemia. 7. Dextrose 50%, 12.5 grams IV and 25 grams IV p.r.n. hypoglycemia. 8. Colace 100 mg p.o. b.i.d. 9. Lasix 40 mg p.o. at bedtime and 40 mg p.o. daily. 10. Glucagon 1 mg IM p.r.n. 11. Hydralazine 100 mg p.o. t.i.d. 12. Levemir insulin 27 units subcutaneously at bedtime. She is on Accu-Cheks before meals t.i.d. and at bedtime with sliding scale insulin coverage. 13. Lispro insulin 10 units subcutaneously before meals. 14. Prevacid 30 mg b.i.d. daily. 15. Lisinopril 5 mg p.o. at bedtime. 16. Meclizine 25 mg p.o. q.8 h. p.r.n. 17. Metoprolol which has been restarted at 12.5 mg p.o. q.12 h. 18. Nitrostat 1 tablet sublingually q.5 minutes p.r.n. chest pain. 19. She did receive potassium chloride 10 mEq p.o. q.12 h. 20. *------*/docusate 1 p.o. daily. 21. Zoloft 100 mg p.o. daily. REVIEW OF SYSTEMS: CONSTITUTIONAL: Denies any fever, chills, or rigors. She just has generalized fatigue. HEAD: The patient has a history of vertigo. No history of head injury. EYES: No history of amblyopia or diplopia. No history of amaurosis fugax. EARS: No history of hearing loss. No history of tinnitus. No history of recurrent ear infections. NOSE: No history of hay fever. No history of nose bleeds. No history of nasal polyps. MOUTH: No history of altered taste sensation. No ulcers in the mouth. No bleeding from the gums. THROAT: No history of odynophagia or dysphagia. No history of recurrent sore throats. SKIN: No psoriasis. No history of pruritus. No history of yellowish discoloration of the skin. No skin cancer. NECK: No enlarged neck lymph nodes. No goiter. LUNGS: No history of asthma or COPD. No history of cough or sputum production and no wheezing. No history of pulmonary embolism. No history of hemoptysis. No history of pleuritic chest pain. CARDIAC: History of hypertension. At present, the patient has sinus bradycardia. She has a history of paroxysmal atrial fibrillation, cardioverted x2 to sinus rhythm. She also has a history of coronary artery disease, history of MA, history of stents. No recent anginal symptoms. She denies any syncope. There is leg edema present, but the patient also has chronic kidney disease stage 4. She has no PND but does have some degree of orthopnea. GASTROINTESTINAL: The patient has history of GERD. No history of fatty food intolerance. No history of GI bleed. No history of abdominal pain. No history of altered bowel movements except for constipation every now and then. No history of hepatitis. No history of jaundice. MUSCULOSKELETAL: History of degenerative joint disease present. No history of collagen vascular disease. RENAL: The patient recently has had some burning micturition and is being treated for a UTI. She has a history of chronic kidney disease, at present stage 4. There is no hematuria or pyuria. There is some dysuria present. ENDOCRINE: History of diabetes mellitus type 2, insulin dependent with chronic kidney complications and also diabetic neuropathy. She has no history of hypothyroidism. No history of heat or cold intolerance. No history of excessive sweating. METABOLIC: History of moderate obesity present. History of hyperlipidemia present. VASCULAR: No history of calf or buttock claudication. No history of DVT. HEMATOLOGICAL: No history of bleeding diathesis. No history of clotting disorders. Rest of review of systems, the patient is on Eliquis 2.5 p.o. b.i.d. for her paroxysmal atrial fibrillation. DISPOSITION: The patient is a DNR. Her [id number] is her surrogate healthcare decision maker. ALLERGIES: She is allergic to: 1. CIPROFLOXACIN. 2. CELEBREX. PHYSICAL EXAMINATION: GENERAL: The patient is moderately obese. VITAL SIGNS: She is afebrile with a temperature of 97.5 degrees Fahrenheit. Pulse is 45 beats per minute. Blood pressure is 107/47, subsequently going went up to 111/49. Respirations are 20 per minute. O2 saturations are 94% on room air. HEAD: Atraumatic/normocephalic. EYES: Pupils are equal, round, regular, reactive to light and accommodation. Extraocular movements are normal. There is no conjunctival pallor. There is no scleral icterus. There is no nystagmus. EARS: Tympanic membranes are intact. External auditory canals are clear. NOSE: There is no inflammation of the nasal mucous membranes. There is no deviated nasal septum. There is no nasal polyp. MOUTH: Mucous membranes of the mouth are moist. Tongue is moist. There is no ulcer. There is no bleeding from the gums. THROAT: There is no redness of the oropharynx. There are no exudates in the throat. SKIN: There are no skin rashes. There are no skin lesions. There is no petechia or ecchymosis. NECK: Supple. There is no JVD. Carotids are equal. There is no bruit. There is no lymphadenopathy. There is no goiter. Trachea is central. There is no JVD. LUNGS: Clear to auscultation/percussion. HEART: S1, S2 is heard. There is no S4 gallop. There is no S3 gallop. There is a systolic murmur in the left sternal border and the apex. There is no rub. ABDOMEN: Soft, obese, nontender. There is no hepatosplenomegaly. Bowel sounds are well heard. There are no tender areas or masses. EXTREMITIES: Deep femorals are diminished. There is no femoral bruit. There is no cyanosis or clubbing. Pedal pulses are decreased. There is no pedal edema. There is no DVT or cellulitis. There is no calf tenderness. CENTRAL NERVOUS SYSTEM: The patient is conscious, awake, alert, oriented x3 with no focal deficit. PSYCHIATRIC: The patient's judgement and insight are intact. Her affect is normal. Note, that the patient's clonidine and amiodarone has been discontinued, and the patient's metoprolol has been decreased to 12.5 mg p.o. b.i.d., but the morning dose today was held as per my instructions. DIAGNOSTIC DATA: The patient's EKG shows sinus rhythm, rate of 52 beats per minute and left bundle branch block pattern. The patient's EKG done yesterday showed sinus bradycardia at a rate of 55 beats per minute, left bundle branch block pattern. The patient's sodium is 135.7, potassium 4.1, chloride 99, CO2 is 28, the patient's BUN is 47, creatinine is 2.03, GFR is reduced at 23 mL which is chronic kidney disease stage 4. The patient's glucose is 93. The patient's total bilirubin 0.4, her direct bilirubin is 0, her AST elevated at 51, ALT is elevated at 59, alkaline phosphatase is normal at 81, total protein is 5.0, albumin is 2.8. Her TSH is 1.96. The patient's white count is 6,500, hemoglobin is 10.6, hematocrit is 32.1, and platelet count is 159,000. IMPRESSION: 1. Sinus bradycardia secondary to multiple *------* teresa slowing agents such as amiodarone and clonidine and also a high dose of metoprolol. Note that the amiodarone has been stopped, as well as her clonidine has been discontinued. The patient is on a small dose of Lopressor. 2. Paroxysmal atrial fibrillation, at present sinus bradycardia. 3. Abnormal liver function tests. This is another reason that the patient's amiodarone should be stopped. 4. Hypertension, fairly well controlled. 5. Coronary artery disease, history of stents with no anginal symptoms. 6. Diabetes mellitus type 2, insulin dependent with chronic kidney complication and neuropathy. 7. Chronic kidney disease stage 4. 8. Urinary tract infection being treated. 9. Vertigo. 10. Depression. 11. Hyperlipidemia. RECOMMENDATIONS: Will discontinue the Lopressor for now and discontinue the clonidine. The amiodarone should be discontinued, not only because of bradycardia but due to abnormal liver function tests. Continue Eliquis. Once her heart rate comes up, I would increase the patient's Lopressor. The management strategy here is to keep the patient under rate control since she is on Eliquis. Continue her insulin. Continue her Lasix. Continue her lisinopril at a small dose. Continue hydralazine. Note, her medications have been reviewed and discussed with Dr. Galeas, the attending physician on the case. I suspect that it might take some time for the patient's heart rate to come up since the patient is on amiodarone which may take at least a week or so to get the heart rate up. In the meantime, we will stop the patient's metoprolol. Continue the patient's atorvastatin as being done now. Continue Zoloft for depression. Note 45 minutes spent on this patient with more than 50% of the time spent in direct patient care and also reviewing the patient's medications and adjusting the patient's medications, also coordinating care with her other care giving providers on the case. Discussed with the patient and the patient's [id number] who is knowledgeable about the patient's history. Note, another 10 months were spent talking to Dr. Goldsmith, who is a magnetic tape typewriter operator who last saw the patient recently. I have discussed the treatment plan with him and told him that I have stopped the amiodarone, and because of abnormal LFTs and because of bradycardia the other medications have been held or decreased. He is agreeable with the treatment plan, and he said that the plan should now be to keep the patient from going into atrial fibrillation, to get her under rate control, and if she is very symptomatic, then may be a third cardioversion attempted. All of this has been discussed with the patient and the patient's family in detail, with a total of 10 minutes spent on discussions with Dr. Goldsmith, magnetic tape typewriter operator at [facility] from [place], [place]. Will follow with you. DICTATING PHYSICIAN: ESTER MARINELLI M.D. [id number] PHY#: [id number] ID: [id number] JOB#: [id number] ACCT: [id number] cc:ESTER MARINELLI M.D. >
[2017-01-17] MEDS: LISINOPRIL 5 MG TABLET PO SCH (22:23)
[2017-01-17] MEDS: INSULIN DETEMIR 100 UNIT/ML 3 ML PEN SUBCUT SCH (22:23)
[2017-01-18 05:18] LABS: CHOLESTEROL 125.78 mg/dL (0-200); Direct HDL 57 mg/dL (>40); TRIGLYCERIDES 144 mg/dL (<150)
[2017-01-18 05:29] LABS: DIRECT LDL 32 mg/dL (<100)
[2017-01-18] MEDS: INSULIN LISPRO 100 UNIT/ML 3 ML VIAL SUBCUT SCH ×3 (10:58→15:19)
[2017-01-18] MEDS: SERTRALINE HCL 50 MG TABLET PO SCH (11:03)
[2017-01-18] MEDS: LANSOPRAZOLE 30 MG TAB.RAP.DR PO SCH (11:03)
[2017-01-18] MEDS: HYDRALAZINE HCL 50 MG TABLET PO SCH ×3 (11:04→18:08)
[2017-01-18] MEDS: POTASSIUM CHLORIDE 10 MEQ TABLET.SA PO SCH ×2 (11:04→22:14)
[2017-01-18] MEDS: DOCUSATE SODIUM 100 MG CAPSULE PO SCH ×2 (11:05→18:09)
[2017-01-18] MEDS: FUROSEMIDE 40 MG TABLET PO SCH ×2 (11:05→22:14)
[2017-01-18] MEDS: ASPIRIN 81 MG TABLET, CHEWABLE PO SCH (11:05)
[2017-01-18] MEDS: CYCLOSPORINE 0.05% OPH EMULSIO 0.4 ML DROPERETTE OU SCH (11:06)
[2017-01-18] MEDS: APIXABAN 2.5 MG TABLET PO SCH ×2 (11:06→18:09)
--- NOTE | 2017-01-18 14:32 | PDOC PROGRESS REPORT ---
Subjective Progress Note for:: 01/18/17 Subjective:: Feels fatigued but better than yesterday. Physical Exam Vital Signs: Temp Pulse Resp BP Pulse Ox 97.5 F 47 L 16 132/39 H 97 01/18/17 12:05 01/18/17 12:05 01/18/17 12:05 01/18/17 12:05 01/18/17 12:05 Intake & Output 01/17/17 01/18/17 01/19/17 06:59 06:59 06:59 Intake Total 852 1385 Balance 852 1385 Weight 82.7 kg 81.3 kg General appearance: PRESENT: no acute distress Eye exam: PRESENT: conjunctiva pink. ABSENT: scleral icterus Mouth exam: PRESENT: moist, tongue midline Neck exam: ABSENT: JVD Respiratory exam: PRESENT: clear to auscultation gabriel. ABSENT: rales, rhonchi, wheezes Cardiovascular exam: PRESENT: bradycardia. ABSENT: diastolic murmur, rubs, systolic murmur GI/Abdominal exam: PRESENT: normal bowel sounds, soft. ABSENT: distended, guarding, mass, organolmegaly, rebound, tenderness Extremities exam: ABSENT: pedal edema Neurological exam: PRESENT: alert, awake, oriented to person, oriented to place , oriented to time, oriented to situation Psychiatric exam: PRESENT: appropriate affect Skin exam: PRESENT: dry, intact, warm. ABSENT: cyanosis, rash Results Laboratory Results: 01/16/17 05:56 01/17/17 06:35 01/18/17 04:49 Triglycerides 144 Cholesterol 125.78 LDL Cholesterol Direct 32 VLDL Cholesterol 29.0 HDL Cholesterol 57 Assessment & Plan - Diagnosis (1) Symptomatic bradycardia Is this a current diagnosis for this admission?: YesPlan: Most likely secondary to the medications amiodarone, Toprol and clonidine all of which been stopped. Patient reports she is feeling better but still feeling fatigued. (2) Atrial fibrillation Qualifiers: Atrial fibrillation type: persistent Qualified Code(s): I48.1 - Persistent atrial fibrillation Is this a current diagnosis for this admission?: YesPlan: Patient is still bradycardic. (3) Diabetes mellitus Qualifiers: Diabetes mellitus type: type 2 Diabetes mellitus complication status: with neurologic complications Diabetes mellitus half-way insulin use: unspecified half-way insulin use status Is this a current diagnosis for this admission?: YesPlan: Sugars have ranged from 100-185. Continue with Levemir and sliding scale insulin. (4) Hypertension Qualifiers: Hypertension type: renovascular hypertension Qualified Code(s): I15.0 - Renovascular hypertension Is this a current diagnosis for this admission?: Yes (5) Chronic kidney disease (CKD) Qualifiers: Chronic kidney disease stage: stage 3 (moderate) Qualified Code(s): N18.3 - Chronic kidney disease, stage 3 (moderate) Is this a current diagnosis for this admission?: YesPlan: Creatinine is elevated but has remained stable. - Time Time Spent with patient: 25-34 minutes - Inpatient Certification Medical Necessity: Need Close Monitoring Due to Risk of Patient Decompensation
[2017-01-18] MEDS: LISINOPRIL 5 MG TABLET PO SCH (22:14)
[2017-01-18] MEDS: INSULIN DETEMIR 100 UNIT/ML 3 ML PEN SUBCUT SCH (22:15)
--- NOTE | 2017-01-18 23:18 | PROGRESS NOTE E ---
Progress Note NAME: KENRICK URBINA : 1935 AGE: 81Y DATE: 01/18/2017 ROOM: 317 SUBJECTIVE: The patient's heart rate seems to be in the high 40s, is 47. She feels better than yesterday but still a little fatigued. There is no PND or orthopnea today. There is no chest pain or discomfort. There is no recurrence of atrial fibrillation, the patient being in sinus bradycardia. There are no palpitations. There are no TIA or CVA symptoms. There is no bleeding on Eliquis. The patient denies any shortness of breath. OBJECTIVE: GENERAL: On examination, the patient is moderately obese. VITAL SIGNS: She is afebrile with a temperature of 97.5, pulse is 47 beats per minute, blood pressure is 132/39, respirations are 16 per minute and 02 saturations are 97% on room air. HEENT: Head is atraumatic, normocephalic. Eyes: Pupils are equal, round, regular and reactive to light and accommodation. Extraocular movements are normal. There is no conjunctival pallor. There is no scleral icterus. There is no nystagmus. ENT is negative. NECK: Supple. There is no JVD. Carotids are equal. There is no bruit. There is no goiter. There is no lymphadenopathy. Trachea is central. LUNGS: Clear to auscultation and percussion. HEART: S1 and S2 are heard. There is no S4 gallop. There is no S3 gallop. There is a systolic murmur in the left sternal border and the apex. There is no rub. ABDOMEN: Soft, obese, nontender. There is no hepatosplenomegaly. Bowel sounds are well heard. There are no tender areas or masses. EXTREMITIES: Femorals are deep. Femorals are diminished. There are no femoral bruits. There is no cyanosis or clubbing. Pedal pulses are decreased. There is no pedal edema. There is no DVT or cellulitis. There is no calf tenderness. CENTRAL NERVOUS SYSTEM: The patient is conscious, awake, alert and oriented x3 with no focal deficits. PSYCHIATRIC: The patient's judgment and insight are intact. Her affect is normal. DIAGNOSTIC DATA: The patient's blood sugars are 134, 199, and 181. IMPRESSION: 1. The patient's sinus bradycardia is secondary to multiple *------* teresa blocking slowing agents such as amiodarone and clonidine and also metoprolol. All of these have been stopped and it might take a few days for the heart rate to come up. 2. Paroxysmal atrial fibrillation. At present, sinus bradycardia. 3. Abnormal liver function tests. This is another reason that the patient's amiodarone has been stopped. 4. Hypertension, well controlled. 5. Coronary artery disease, history of stents with no anginal symptoms. 6. Diabetes mellitus type 2, insulin dependent with chronic kidney complications and neuropathy. 7. Chronic kidney disease stage 4. 8. Urinary tract infection being treated. 9. Vertigo, no recurrence this admission. 10. Depression. 11. Hyperlipidemia. RECOMMENDATIONS: Continue to hold clonidine, metoprolol and amiodarone. Will see if the patient's heart rate improves tomorrow, in which case we might start her on a small dose of amiodarone. We will talk to the [id number] and see if they can buy an electronic blood pressure machine which can also count the pulse, and the patient has been instructed to call me if the pulse rate goes up so that we can increase the medications as an outpatient. We will recheck the patient's liver function tests. Note that 30 minutes spent on this patient with more than 50% of the time spent on direct patient care, reviewing the patient's medications and also discussions with the other caregivers on the case. This involved moderate complex decision making, since there is always a chance that the patient can convert back into atrial fibrillation with rapid ventricular response. Will follow with you. Thanking you. DICTATING PHYSICIAN: ESTER MARINELLI M.D. [id number] PHY#: [id number] ID: [id number] JOB#: [id number] ACCT: [id number] cc: >
[2017-01-19 05:17] LABS: ABSOLUTE BASOPHILS # (AUTO) 0.1 10^3/uL (0.0-0.2); ABSOLUTE EOSINOPHILS # (AUTO) 0.2 10^3/uL (0.0-0.6); ABSOLUTE MONOCYTES (AUTO) 0.6 10^3/uL (0.1-1.4); ABSOLUTE NEUT (AUTO) 4.7 10^3/uL (1.7-8.2); BASOPHILS % (AUTO) 0.9 % (0-2); EOSINOPHILS % (AUTO) 2.4 % (0-6); HEMATOCRIT 33.6 % (36.0-47.0); HEMOGLOBIN 11.1 g/dL (12.0-15.5); HGB HCT DIFFERENCE -0.3; LYMPHOCYTES % (AUTO) 14.7 % (13-45); MEAN CORPUSCULAR HEMOGLOBIN 29.6 pg (27.0-33.4); MEAN CORPUSCULAR HGB CONC 33.2 g/dL (32.0-36.0); MEAN CORPUSCULAR VOLUME 89 fl (80-97); MONOCYTES % (AUTO) 9.7 % (3-13); RED BLOOD COUNT 3.76 10^6/uL (3.72-5.28); RED CELL DISTRIBUTION WIDTH 15.9 % (11.5-14.0); SEGMENTED NEUTROPHILS % (AUTO) 72.3 % (42-78); WHITE BLOOD COUNT 6.5 10^3/uL (4.0-10.5)
[2017-01-19 05:59] LABS: ANION GAP 9 (5-19); BLOOD UREA NITROGEN 52 mg/dL (7-20); CALCIUM 8.7 mg/dL (8.4-10.2); CARBON DIOXIDE 25 mmol/L (22-30); CHLORIDE 103 mmol/L (98-107); GLUCOSE 131 mg/dL (75-110); POTASSIUM 4.1 mmol/L (3.6-5.0); SODIUM 136.5 mmol/L (137-145)
[2017-01-19] MEDS: INSULIN LISPRO 100 UNIT/ML 3 ML VIAL SUBCUT SCH ×3 (10:29→16:17)
[2017-01-19] MEDS: CYCLOSPORINE 0.05% OPH EMULSIO 0.4 ML DROPERETTE OU SCH (10:36)
[2017-01-19] MEDS: DOCUSATE SODIUM 100 MG CAPSULE PO SCH ×2 (10:36→17:52)
[2017-01-19] MEDS: LANSOPRAZOLE 30 MG TAB.RAP.DR PO SCH (10:36)
[2017-01-19] MEDS: ASPIRIN 81 MG TABLET, CHEWABLE PO SCH (10:36)
[2017-01-19] MEDS: HYDRALAZINE HCL 50 MG TABLET PO SCH ×3 (10:37→17:51)
[2017-01-19] MEDS: POTASSIUM CHLORIDE 10 MEQ TABLET.SA PO SCH ×2 (10:37→22:30)
[2017-01-19] MEDS: SERTRALINE HCL 50 MG TABLET PO SCH (10:37)
[2017-01-19] MEDS: FUROSEMIDE 40 MG TABLET PO SCH ×2 (10:37→22:29)
[2017-01-19] MEDS: APIXABAN 2.5 MG TABLET PO SCH ×2 (10:38→17:52)
--- NOTE | 2017-01-19 11:19 | PDOC PROGRESS REPORT ---
Subjective Progress Note for:: 01/19/17 Subjective:: Complains of some discomfort in her right ear. Physical Exam Vital Signs: Temp Pulse Resp BP Pulse Ox 97.3 F 46 L 16 159/49 H 100 01/19/17 08:03 01/19/17 08:03 01/19/17 08:03 01/19/17 08:03 01/19/17 08:03 Intake & Output 01/18/17 01/19/17 01/20/17 06:59 06:59 06:59 Intake Total 1385 1205 Output Total 700 Balance 1385 505 Weight 81.3 kg 80.1 kg General appearance: PRESENT: no acute distress Eye exam: PRESENT: conjunctiva pink. ABSENT: scleral icterus Ear exam: PRESENT: normal external ear exam Mouth exam: PRESENT: moist, tongue midline Neck exam: ABSENT: JVD Respiratory exam: PRESENT: clear to auscultation gabriel. ABSENT: rales, rhonchi, wheezes Cardiovascular exam: PRESENT: bradycardia. ABSENT: diastolic murmur, rubs, systolic murmur GI/Abdominal exam: PRESENT: normal bowel sounds, soft. ABSENT: distended, guarding, mass, organolmegaly, rebound, tenderness Extremities exam: ABSENT: calf tenderness, clubbing, pedal edema Neurological exam: PRESENT: alert, awake, oriented to person, oriented to place , oriented to time, oriented to situation Psychiatric exam: PRESENT: appropriate affect Skin exam: PRESENT: dry, intact, warm. ABSENT: cyanosis, rash Results Laboratory Results: 01/19/17 04:42 01/19/17 04:42 01/19/17 01/19/17 04:42 04:42 WBC 6.5 RBC 3.76 Hgb 11.1 L Hct 33.6 L MCV 89 MCH 29.6 MCHC 33.2 RDW 15.9 H Plt Count 156 Seg Neutrophils % 72.3 Lymphocytes % 14.7 Monocytes % 9.7 Eosinophils % 2.4 Basophils % 0.9 Absolute Neutrophils 4.7 Absolute Lymphocytes 1.0 Absolute Monocytes 0.6 Absolute Eosinophils 0.2 Absolute Basophils 0.1 Sodium 136.5 L Potassium 4.1 Chloride 103 Carbon Dioxide 25 Anion Gap 9 BUN 52 H Creatinine 2.10 H Est GFR ( Amer) 27 L Est GFR (Non-Af Amer) 23 L Glucose 131 H Calcium 8.7 Assessment & Plan - Diagnosis (1) Symptomatic bradycardia Is this a current diagnosis for this admission?: YesPlan: Most likely secondary to the medications amiodarone, Toprol and clonidine all of which been stopped. The patient's pulse is in to the 40s now and is improving but she still felt somewhat tired. We'll continue to monitor for at least another 24 hours (2) Atrial fibrillation Qualifiers: Atrial fibrillation type: persistent Qualified Code(s): I48.1 - Persistent atrial fibrillation Is this a current diagnosis for this admission?: YesPlan: Patient is still bradycardic. 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 Continue with Levemir and sliding scale insulin. (4) Hypertension Qualifiers: Hypertension type: renovascular hypertension Qualified Code(s): I15.0 - Renovascular hypertension Is this a current diagnosis for this admission?: Yes (5) Chronic kidney disease (CKD) Qualifiers: Chronic kidney disease stage: stage 3 (moderate) Qualified Code(s): N18.3 - Chronic kidney disease, stage 3 (moderate) Is this a current diagnosis for this admission?: YesPlan: Creatinine is elevated but has remained stable. (6) Otitis Is this a current diagnosis for this admission?: YesPlan: We'll give Cortisporin otic drops - Time Time Spent with patient: 25-34 minutes - Inpatient Certification Medical Necessity: Need Close Monitoring Due to Risk of Patient Decompensation
[2017-01-19] MEDS: NEOMY SULF/POLYMYX B SULF/HC OTIC SUSP 10 ML AD SCH ×4 (11:27→22:30)
--- NOTE | 2017-01-19 21:33 | PROGRESS NOTE E ---
Progress Note NAME: KENRICK URBINA : 1935 AGE: 81Y DATE: 01/19/2017 ROOM: 317 SUBJECTIVE: Note that the patient is sitting up in bed stating that she feels much better. There are no symptoms of difficulty urinating. She denies any shortness of breath. Her heart rate still is on the bradycardic side. Although it is recorded as the heart rate being 48, when I saw the patient, it goes between 50 to 60 beats per minute. The patient denies any chest pain or discomfort. There is no PND or orthopnea or leg edema. There is no chest pain or discomfort. There is no recurrence of atrial fibrillation. The patient states the nausea has resolved. OBJECTIVE: GENERAL: On examination, the patient is moderately obese, in no acute distress. VITAL SIGNS: She is afebrile with a temperature of 97.3 degrees Fahrenheit. Pulse is at present 56 beats per minute. Blood pressure is 150/44. Respirations are 16 per minute. O2 saturations are 98% on room air. HEAD: Atraumatic/normocephalic. EYES: Pupils are equal, round, regular, reactive to light and accommodation. Extraocular movements are normal. There is no conjunctival pallor. There is no scleral icterus. There is no nystagmus. EARS, NOSE, AND THROAT: Negative. NECK: The neck is supple. There is no JVD. Carotids are equal. There is no bruit. There is no goiter. There is no lymphadenopathy. Trachea is central. LUNGS: Clear to auscultation and percussion. HEART: S1, S2 is heard. There is no S4 gallop. There is no S3 gallop. There is systolic murmur in the left sternal border and the apex. There is no rub. ABDOMEN: Soft, obese, nontender. There is no hepatosplenomegaly. Bowel sounds are well heard. There are no tender areas or masses. EXTREMITIES: Femorals are deep. Femorals are diminished. There is no femoral bruit. There is no cyanosis or clubbing. Pedal pulses are decreased. There is no pedal edema. There is no DVT or cellulitis. There is no calf tenderness. CENTRAL NERVOUS SYSTEM: The patient is conscious, awake, alert, oriented x3 with no focal deficits. PSYCHIATRIC: The patient's judgement and insight are intact. Her affect is normal. DIAGNOSTIC DATA: The patient's white count is 6,500, hemoglobin is 11.1, hematocrit is 33.6, and the platelet count is 156,000. The patient's sodium is 136.5, potassium is 4.1, chloride is 103, CO2 is 25, the patient's BUN is 52, creatinine is 2.10, GFR is reduced at 23 which is chronic kidney disease stage 4, the patient's calcium is 8.7, and the glucose is 141. IMPRESSION: 1. SINUS BRADYCARDIA STILL PERSIST, BUT THE HEART RATE SEEMS TO BE SLIGHTLY IMPROVING. NOTE THAT CLONIDINE, BETA ZEFERINO, AND AMIODARONE HAVE ALL BEEN DISCONTINUED, AND THE PATIENT'S THYROID FUNCTIONS ARE NORMAL. 2. PAROXYSMAL ATRIAL FIBRILLATION, AT PRESENT IN SINUS BRADYCARDIA. 3. ABNORMAL LIVER FUNCTION TESTS. WILL RE-ASSESS THE LIVER FUNCTION TESTS IN THE A.M. 4. HYPERTENSION, WELL CONTROLLED. 5. CORONARY ARTERY DISEASE AND HISTORY OF STENTS WITH NO ANGINAL SYMPTOMS. 6. 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 7. CHRONIC KIDNEY DISEASE STAGE 4. 8. URINARY TRACT INFECTION, PATIENT BEING TREATED AND IS ASYMPTOMATIC. 9. VERTIGO, NO RECURRENCE THIS ADMISSION. 10. DEPRESSION. 11. HYPERLIPIDEMIA. PLAN: Yesterday the patient had her lipid levels done. Her triglycerides were 124, her total cholesterol was 125.78, her LDL cholesterol is very good at 32, HDL cholesterol is very good at 57. Hence, the patient has good lipid levels, but in view of the patient's abnormal liver function tests, the amiodarone and the statin have been discontinued. Will recheck the patient's liver function tests in the a.m. As mentioned earlier, will continue to stop the clonidine, metoprolol, and amiodarone. It is still not the right time, in view of the patient's heart rate, to restart the patient on a beta zeferino. Will ambulate the patient to see if this gets the patient's heart rate up. The next 2 weeks the patient needs to be very vigilant about her heart rate to make sure that there is no recurrence of atrial fibrillation. Note, 30 minutes spent on this patient with more than 50% of the time spent in direct patient care, reviewing the patient's medications, and also discussions with other caregivers on the case and also discussion of the lab results with the patient. Will follow with you. DICTATING PHYSICIAN: ESTER MARINELLI M.D. [id number] PHY#: [id number] ID: [id number] JOB#: [id number] ACCT: [id number] cc:ESTER MARINELLI M.D. >
[2017-01-19] MEDS: LISINOPRIL 5 MG TABLET PO SCH (22:30)
[2017-01-19] MEDS: INSULIN DETEMIR 100 UNIT/ML 3 ML PEN SUBCUT SCH (22:31)
[2017-01-20 05:20] LABS: ALANINE AMINOTRANSFERASE 62 U/L (9-52); ALBUMIN 2.5 g/dL (3.5-5.0); ALKALINE PHOSPHATASE 80 U/L (38-126); ANION GAP 10 (5-19); ASPARTATE AMINO TRANSFERASE 50 U/L (14-36); BILIRUBIN,TOTAL 0.3 mg/dL (0.2-1.3); BLOOD UREA NITROGEN 54 mg/dL (7-20); CALCIUM 8.8 mg/dL (8.4-10.2); CARBON DIOXIDE 24 mmol/L (22-30); CHLORIDE 102 mmol/L (98-107); CREATININE RESULT 2.32 mg/dL (0.52-1.25); GLUCOSE 94 mg/dL (75-110); POTASSIUM 4.2 mmol/L (3.6-5.0); TOTAL PROTEIN 5.1 g/dL (6.3-8.2)
--- NOTE | 2017-01-20 08:37 | PDOC DISCHARGE SUMMARY ---
General - Admit/Disc Date/PCP Admission Date/Primary Care Provider: 01/13/17 15:29 MASOUD GALEAS, Discharge Date: 01/20/17 - Discharge Diagnosis (1) Atrial fibrillation Is this a current diagnosis for this admission?: YesSummary: Rate controlled (2) Chronic kidney disease (CKD) Is this a current diagnosis for this admission?: YesSummary: Stable. We will continue with gentle diuretics (3) Urinary tract infection Is this a current diagnosis for this admission?: Yes (4) Diabetes mellitus Is this a current diagnosis for this admission?: YesSummary: Continue home dose of insulin needs and no starch diet (5) Congestive heart failure Is this a current diagnosis for this admission?: YesSummary: Resolved (6) Coronary artery disease Is this a current diagnosis for this admission?: YesSummary: Stable (7) Vertigo Is this a current diagnosis for this admission?: YesSummary: Resolved. Possible causes or labyrinthitis versus symptomatic bradycardia due to medications and history of paroxysmal atrial fibrillation (8) Dehydration Summary: Resolved with rehydration (9) Hypertension Is this a current diagnosis for this admission?: YesSummary: Relatively well controlled with current medication regimen (10) Symptomatic bradycardia Is this a current diagnosis for this admission?: YesSummary: Resolved with holding and stopping the amiodarone and metoprolol and clonidine. - Additional Information Resuscitation Status: Do Not Resuscitate Discharge Diet: As Tolerated, Cardiac, Diabetic Discharge Activity: Activity As Tolerated Home Medications: Apixaban [Eliquis 2.5 mg Tablet] 2.5 mg PO BID 01/13/17 Aspirin [Ecotrin 81 mg EC Tablet] 81 mg PO DAILY 01/13/17 Atorvastatin Calcium [Lipitor 80 mg Tablet] 80 mg PO QPM 01/13/17 Cyclosporine [Restasis Droperette] 1 drop OP DAILY 01/13/17 Hydralazine HCl [Apresoline 50 mg Tablet] 100 mg PO TID 01/13/17 Insulin Detemir [Levemir Insulin 100 units/mL] 35 units SQ QHS 01/13/17 Insulin Lispro [Humalog Insulin (Lispro) 100 unit/mL] 15 units SQ AC 01/13/17 Lansoprazole [Prevacid 30 mg Odt Tablet] 30 mg PO DAILY 01/13/17 Lisinopril [Prinivil 5 mg Tablet] 5 mg PO QHS 01/13/17 Nitroglycerin [Nitrostat 0.4 mg (1/150 Gr) Tabs 25/Bottle] 1 tab SL ASDIR PRN Sennosides [Senna] 8.6 mg PO QPMP PRN 01/13/17 Sertraline HCl [Zoloft] 100 mg PO DAILY 01/13/17 Acetaminophen [Tylenol 325 mg Tablet] 650 mg PO Q4HP PRN #0 tablet 01/20/17 Apixaban [Eliquis 2.5 mg Tablet] 2.5 mg PO BID #0 tablet 01/20/17 Furosemide [Lasix] 40 mg PO BID #0 01/20/17 Potassium Chloride [Klor-Con 10 Meq Tablet.sa] 10 meq PO DAILY #0 tablet.sa History of Present Illness History of Present Illness: The patient was admitted directly from the office with near syncopal episode with vertigo possibly related to labyrinthitis or symptomatic bradycardia. Hospital Course Hospital Course: The patient did well during hospitalization. Because of her bradycardia she was slowly weaned off all of her medications that can be causing the bradycardia including metoprolol and amiodarone and clonidine. Her kidney function has stabilized between 2 and 2.3. Her blood pressure was well-controlled and once her medications have been stopped her heart rate increased into the mid 70s Physical Exam Vital Signs: Temp Pulse Resp BP Pulse Ox 97.8 F 65 18 160/48 H 100 01/20/17 07:13 01/20/17 07:13 01/20/17 07:13 01/20/17 07:13 01/20/17 07:13 Intake & Output 01/19/17 01/20/17 01/21/17 06:59 06:59 06:59 Intake Total 1205 1367 Output Total 700 700 Balance 505 667 Weight 80.1 kg 81.3 kg General appearance: PRESENT: no acute distress Head exam: PRESENT: atraumatic Eye exam: PRESENT: conjunctiva pink Neck exam: PRESENT: full ROM. ABSENT: carotid bruit Respiratory exam: PRESENT: clear to auscultation gabriel Cardiovascular exam: PRESENT: irregular rhythm Pulses: PRESENT: +1 pedal pulses bilateral Vascular exam: PRESENT: normal capillary refill GI/Abdominal exam: PRESENT: normal bowel sounds, soft Extremities exam: PRESENT: full ROM Musculoskeletal exam: PRESENT: ambulatory Neurological exam: PRESENT: alert, awake Results Laboratory Results: 01/19/17 04:42 01/20/17 04:22 01/20/17 04:22 Sodium 136.0 L Potassium 4.2 Chloride 102 Carbon Dioxide 24 Anion Gap 10 BUN 54 H Creatinine 2.32 H Est GFR ( Amer) 24 L Est GFR (Non-Af Amer) 20 L Glucose 94 Calcium 8.8 Total Bilirubin 0.3 AST 50 H ALT 62 H Alkaline Phosphatase 80 Total Protein 5.1 L Albumin 2.5 L Plan Discharge Plan: Patient will be discharged home. The list of medications that would change provided to the patient and the family. Follow-up in the office in one week and when necessary. Call cardiology office for a follow-up appointment and reevaluation
[2017-01-20] MEDS: INSULIN LISPRO 100 UNIT/ML 3 ML VIAL SUBCUT SCH ×2 (08:50→10:10)
[2017-01-20] MEDS: POTASSIUM CHLORIDE 10 MEQ TABLET.SA PO SCH (09:45)
[2017-01-20] MEDS: LANSOPRAZOLE 30 MG TAB.RAP.DR PO SCH (09:45)
[2017-01-20] MEDS: DOCUSATE SODIUM 100 MG CAPSULE PO SCH (09:45)
[2017-01-20] MEDS: HYDRALAZINE HCL 50 MG TABLET PO SCH (09:46)
[2017-01-20] MEDS: SERTRALINE HCL 50 MG TABLET PO SCH (09:46)
[2017-01-20] MEDS: ASPIRIN 81 MG TABLET, CHEWABLE PO SCH (09:46)
[2017-01-20] MEDS: FUROSEMIDE 40 MG TABLET PO SCH (09:46)
[2017-01-20] MEDS: CYCLOSPORINE 0.05% OPH EMULSIO 0.4 ML DROPERETTE OU SCH (09:46)
[2017-01-20] MEDS: APIXABAN 2.5 MG TABLET PO SCH (09:47)
[2017-01-20] MEDS: NEOMY SULF/POLYMYX B SULF/HC OTIC SUSP 10 ML AD SCH (09:47)
[2017-01-20 10:52] VITALS: BP 172/53
== END 2017-01-20 11:32 | disposition home health service (06) | DRG 309 ==
LOC: 3W 15:29
PROVIDERS: ADMIT Internal Medicine; ATTEND Internal Medicine
DX: I48.1 Persistent atrial fibrillation (principal); N18.4 Chronic kidney disease, stage 4 (severe); N39.0 Urinary tract infection, site not specified; I50.32 Chronic diastolic (congestive) heart failure; Z66 Do not resuscitate; I25.10 Atherosclerotic heart disease of native coronary artery without angina pectoris; E78.5 Hyperlipidemia, unspecified; I10 Essential (primary) hypertension; E11.22 Type 2 diabetes mellitus with diabetic chronic kidney disease; I12.9 Hypertensive chronic kidney disease with stage 1 through stage 4 chronic kidney disease, or unspecified chronic kidney disease; E86.0 Dehydration; R42 Dizziness and giddiness; R00.1 Bradycardia, unspecified; H66.90 Otitis media, unspecified, unspecified ear; I25.2 Old myocardial infarction; Z79.82 Long term (current) use of aspirin; Z79.4 Long term (current) use of insulin; Z87.891 Personal history of nicotine dependence
CPT/HCPCS: 36415; 80048; 80053; 80061; 80076; 81001; 82962; 83735; 84443; 85025; 87086; 93005; 93010; G8978-GP; G8979-GP; J1815; J3490; J7030

== ENCOUNTER → 2017-01-27 | Outpatient (CLI) | payer MEDICARE, BC ==
[2017-01-27 15:09] LABS: HEMATOCRIT 37.6 % (36.0-47.0); HEMOGLOBIN 12.2 g/dL (12.0-15.5); MEAN CORPUSCULAR HEMOGLOBIN 29.4 pg (27.0-33.4); MEAN CORPUSCULAR HGB CONC 32.5 g/dL (32.0-36.0); MEAN CORPUSCULAR VOLUME 91 fl (80-97); RED BLOOD COUNT 4.15 10^6/uL (3.72-5.28); RED CELL DISTRIBUTION WIDTH 15.5 % (11.5-14.0); WHITE BLOOD COUNT 9.4 10^3/uL (4.0-10.5)
[2017-01-27 15:32] LABS: ANION GAP 11 (5-19); BLOOD UREA NITROGEN 42 mg/dL (7-20); CARBON DIOXIDE 27 mmol/L (22-30); CHLORIDE 100 mmol/L (98-107); CREATININE RESULT 2.52 mg/dL (0.52-1.25); GLUCOSE 138 mg/dL (75-110); POTASSIUM 4.5 mmol/L (3.6-5.0); SODIUM 137.7 mmol/L (137-145)
== END ==
LOC: OD 14:19
PROVIDERS: ATTEND Internal Medicine Nephrology
DX: I12.9 Hypertensive chronic kidney disease with stage 1 through stage 4 chronic kidney disease, or unspecified chronic kidney disease (principal); N18.4 Chronic kidney disease, stage 4 (severe); R80.9 Proteinuria, unspecified; I50.9 Heart failure, unspecified; E11.9 Type 2 diabetes mellitus without complications
CPT/HCPCS: 36415; 80048; 85027

== ENCOUNTER → 2017-02-03 | Outpatient (CLI) | payer MEDICARE, BC ==
[2017-02-03 16:18] LABS: APPEARANCE,URINE CLOUDY; BILIRUBIN,URINE NEGATIVE (NEGATIVE); GLUCOSE, URINE NEGATIVE (NEGATIVE); KETONES,URINE NEGATIVE (NEGATIVE); LEUKOCYTE ESTERASE,URINE LARGE (NEGATIVE); NITRITE,URINE NEGATIVE (NEGATIVE); PROTEIN,URINE 100 mg/dL (NEGATIVE); URINE SPECIFIC GRAVITY 1.014; UROBILINOGEN,URINE NEGATIVE mg/dL (<2.0)
== END ==
LOC: OD 15:12
PROVIDERS: ATTEND Internal Medicine Nephrology
DX: N39.0 Urinary tract infection, site not specified (principal); N18.4 Chronic kidney disease, stage 4 (severe)
CPT/HCPCS: 81001; 87086; 87088; 87186

== ENCOUNTER 2017-02-19 09:09 | Day surgery (SDC) | payer MEDICARE, BC ==
[~2017-02-19 09:09] MED LIST: DIPHENHYDRAMINE HCL 50 MG/ML VIAL ONE; EPINEPHRINE INJ 1 MG/10 ML DISP.SYRIN ONE; FENTANYL CITRATE INJ/PF 100 MCG/2 ML AMPUL ONE; FLUMAZENIL INJ 0.5 MG/5 ML VIAL IV ONE; GLUCAGON,HUMAN RECOMB 1 MG INJ ONE; NALOXONE HCL INJ/PF 0.4 MG/1 ML SDV ONE; ONDANSETRON HCL INJ/PF 4 MG/2 ML SDV ONE; PROMETHAZINE HCL INJ 25 MG/1 ML VIAL ONE
[2017-02-19] MEDS: MIDAZOLAM 2 MG/2 ML INJ ONE ×3 (09:55→10:01)
--- NOTE | 2017-02-19 10:10 | Operative Report ---
Operative Report DATE OF SURGERY: 02/19/17 Operative Report: The risks benefits and alternatives of the procedure explained to the patient in detail and informed consent is obtained that GIF Olympus video scope was inserted into the patient's mouth and hypopharynx the esophagus is identified intubated and insufflated the scope was then advanced through the esophagus stomach and duodenum retroflexion maneuver is done the esophagus stomach and first and second portions of the duodenum examined PREOPERATIVE DIAGNOSIS: Epigastric pain POSTOPERATIVE DIAGNOSIS: Esophagitis, gastritis OPERATION: EGD with biopsy SURGEON: PJ HAUSER ANESTHESIA: Moderate Sedation - 4 mg of Versed, 25 g of fentanyl. Conscious sedation monitoring time 15 minutes. TISSUE REMOVED OR ALTERED: Gastric mucosal specimen obtained rule out Helicobacter pylori COMPLICATIONS: None. ESTIMATED BLOOD LOSS: none. INTRAOPERATIVE FINDINGS: As noted above. PROCEDURE: Patient tolerated procedure well. No immediate postprocedure complications are noted. Patient is discharged in good condition. Discharge date 02/19/2017. Discharge diet: Regular. Discharge activity: Regular. 2-3 week follow-up to discuss findings. Patient is instructed to call the office or proceed to the emergency room should there be any further problems or questions. Await on biopsies.
[2017-02-19 11:28] VITALS: BP 140/62
== END 2017-02-19 11:15 | disposition home or self-care (01) ==
LOC: END 09:09
PROVIDERS: ATTEND Internal Medicine Gastroenterology
PROC: 0DB68ZX Excision of Stomach, Via Natural or Artificial Opening Endoscopic, Diagnostic (ICD-10-PCS; principal; 2017-02-19 09:30)
DX: K21.0 Gastro-esophageal reflux disease with esophagitis (principal); K29.50 Unspecified chronic gastritis without bleeding; E78.5 Hyperlipidemia, unspecified; I12.0 Hypertensive chronic kidney disease with stage 5 chronic kidney disease or end stage renal disease; E08.22 Diabetes mellitus due to underlying condition with diabetic chronic kidney disease; N18.6 End stage renal disease; D64.9 Anemia, unspecified; I70.90 Unspecified atherosclerosis; I48.91 Unspecified atrial fibrillation; F03.90 Unspecified dementia, unspecified severity, without behavioral disturbance, psychotic disturbance, mood disturbance, and anxiety; J30.9 Allergic rhinitis, unspecified; Z79.899 Other long term (current) drug therapy; Z79.1 Long term (current) use of non-steroidal anti-inflammatories (NSAID); Z79.01 Long term (current) use of anticoagulants; Z79.4 Long term (current) use of insulin; Z79.82 Long term (current) use of aspirin
CPT/HCPCS: 43239; 82962; 88342 ×2; 88305 ×2; J2250; J3010; J0171; J1200; J1610; J2310; J2405; J2550; J3490

== ENCOUNTER → 2017-03-24 | Outpatient (CLI) | payer MEDICARE, BC ==
[2017-03-24 15:28] LABS: HEMATOCRIT 36.1 % (36.0-47.0); HGB HCT DIFFERENCE -0.1; MEAN CORPUSCULAR HEMOGLOBIN 30.1 pg (27.0-33.4); MEAN CORPUSCULAR HGB CONC 33.3 g/dL (32.0-36.0); MEAN CORPUSCULAR VOLUME 90 fl (80-97); RED BLOOD COUNT 3.99 10^6/uL (3.72-5.28); RED CELL DISTRIBUTION WIDTH 14.7 % (11.5-14.0); WHITE BLOOD COUNT 7.8 10^3/uL (4.0-10.5)
[2017-03-24 15:36] LABS: APPEARANCE,URINE SLIGHTLY-CLOUDY; BILIRUBIN,URINE NEGATIVE (NEGATIVE); GLUCOSE, URINE 50 mg/dL (NEGATIVE); KETONES,URINE NEGATIVE (NEGATIVE); LEUKOCYTE ESTERASE,URINE LARGE (NEGATIVE); NITRITE,URINE NEGATIVE (NEGATIVE); PROTEIN,URINE 100 mg/dL (NEGATIVE); URINE SPECIFIC GRAVITY 1.015; UROBILINOGEN,URINE NEGATIVE mg/dL (<2.0)
[2017-03-24 15:47] LABS: ANION GAP 10 (5-19); BLOOD UREA NITROGEN 34 mg/dL (7-20); CALCIUM 8.4 mg/dL (8.4-10.2); CARBON DIOXIDE 27 mmol/L (22-30); CHLORIDE 101 mmol/L (98-107); CREATININE RESULT 1.94 mg/dL (0.52-1.25); GLUCOSE 260 mg/dL (75-110); POTASSIUM 4.5 mmol/L (3.6-5.0); SODIUM 138.3 mmol/L (137-145)
[2017-03-26 11:40] LABS: CREATININE URINE 133.1 mg/dL (Not Estab.)
== END ==
LOC: OD 14:23
PROVIDERS: ATTEND Internal Medicine Nephrology
DX: E11.9 Type 2 diabetes mellitus without complications (principal); N18.4 Chronic kidney disease, stage 4 (severe); I50.9 Heart failure, unspecified; R80.9 Proteinuria, unspecified
CPT/HCPCS: 36415; 80048; 81001; 82570; 84156; 85027

== ENCOUNTER 2017-04-15 15:44 | Emergency (ER) | payer MEDICARE, BC ==
--- NOTE | 2017-04-15 16:21 | ER Document Report ---
ED Medical Screen (RME) - General Chief Complaint: Chest Pain Stated Complaint: HEART PROBLEM Time Seen by Provider: 04/15/17 16:10 Notes: Palpitations without chest pain or shortness of breath starting yesterday. Patient has a history of atrial fibrillation on Eliquis. 2 cardioversions with the last being in August. Patient is followed by Dr. Anderson the medical receptionist biller in [place]. Patient denies any calf pain or leg swelling above baseline. EKG shows atrial fibrillation with rapid ventricular response. Blood pressure stable. Patient will be expedited to a back when in the main emergency department. TRAVEL OUTSIDE OF THE [place] IN LAST 30 DAYS: No - Related Data Allergies/Adverse Reactions: celecoxib [From Celebrex] Allergy (Unknown, Verified 02/19/17 09:16) ciprofloxacin [From Cipro] Allergy (Unknown, Verified 02/19/17 09:16) Past Medical History - Past Medical History Cardiac Medical History: Reports: Hx Atrial Fibrillation, Hx Congestive Heart Failure, Hx Coronary Artery Disease, Hx Heart Attack, Hx Hypercholesterolemia, Hx Hypertension Pulmonary Medical History: Reports: Hx Bronchitis Denies: Hx Asthma, Hx COPD, Hx Pneumonia Neurological Medical History: Denies: Hx Cerebrovascular Accident, Hx Migraine, Hx Seizures Endocrine Medical History: Reports: Hx Diabetes Mellitus Type 2 Renal/ Medical History: Denies: Hx Peritoneal Dialysis Musculoskeltal Medical History: Reports Hx Arthritis Skin Medical History: Reports Hx Eczema Psychiatric Medical History: Reports: Hx Anxiety, Hx Depression Past Surgical History: Reports: Hx Abdominal Surgery - APPENDIX, Hx Appendectomy , Hx Cardiac Catheterization - -, stents x2, Hx Coronary Stent - x2, Hx Hysterectomy, Hx Tubal Ligation. Denies: Hx Adenoidectomy - Immunizations Hx Diphtheria, Pertussis, Tetanus Vaccination: No
[2017-04-15 16:50] LABS: ABSOLUTE BASOPHILS # (AUTO) 0.1 10^3/uL (0.0-0.2); ABSOLUTE EOSINOPHILS # (AUTO) 0.2 10^3/uL (0.0-0.6); ABSOLUTE LYMPHOCYTES (AUTO) 1.3 10^3/uL (0.5-4.7); ABSOLUTE MONOCYTES (AUTO) 0.6 10^3/uL (0.1-1.4); ABSOLUTE NEUT (AUTO) 7.7 10^3/uL (1.7-8.2); BASOPHILS % (AUTO) 0.6 % (0-2); EOSINOPHILS % (AUTO) 1.6 % (0-6); HEMATOCRIT 35.9 % (36.0-47.0); HEMOGLOBIN 11.5 g/dL (12.0-15.5); HGB HCT DIFFERENCE -1.4; LYMPHOCYTES % (AUTO) 13.4 % (13-45); MEAN CORPUSCULAR HEMOGLOBIN 29.7 pg (27.0-33.4); MEAN CORPUSCULAR HGB CONC 32.2 g/dL (32.0-36.0); MEAN CORPUSCULAR VOLUME 92 fl (80-97); MONOCYTES % (AUTO) 5.7 % (3-13); RED BLOOD COUNT 3.88 10^6/uL (3.72-5.28); RED CELL DISTRIBUTION WIDTH 14.9 % (11.5-14.0); SEGMENTED NEUTROPHILS % (AUTO) 78.7 % (42-78); WHITE BLOOD COUNT 9.8 10^3/uL (4.0-10.5)
--- NOTE | 2017-04-15 16:54 | ER Document Report ---
ED Cardiac - General Chief Complaint: Chest Pain Stated Complaint: HEART PROBLEM Time Seen by Provider: 04/15/17 16:10 Information source: Patient, Relative TRAVEL OUTSIDE OF THE [place] IN LAST 30 DAYS: No - HPI Notes: 81-year-old female with history of diabetes mellitus and atrial fibrillation with 2 prior cardiac ablations the last being in the fall presents with elevated heart rate starting in the morning. She is currently on eloquent but since her ablation last fall she has been taken off of her other medications which included Norvasc amiodarone and metoprolol. She has been asymptomatic without any atrial fibrillation since the last ablation. She has no palpitations but does note mostly fatigue but did have a little bit of pain across her shoulders. She has only had a recent change of her Lasix to an increased dose recently. She specifically denies any anterior chest discomfort. No significant shortness of breath. She is not currently having any bleeding issues. - Related Data Allergies/Adverse Reactions: celecoxib [From Celebrex] Allergy (Unknown, Verified 02/19/17 09:16) ciprofloxacin [From Cipro] Allergy (Unknown, Verified 02/19/17 09:16) Past Medical History - Social History Smoking Status: Never Smoker Chew tobacco use (# tins/day): No Frequency of alcohol use: None Drug Abuse: None Family History: Reviewed & Not Pertinent Patient has suicidal ideation: No Patient has homicidal ideation: No - Past Medical History Cardiac Medical History: Reports: Hx Atrial Fibrillation, Hx Congestive Heart Failure, Hx Coronary Artery Disease, Hx Heart Attack, Hx Hypercholesterolemia, Hx Hypertension Pulmonary Medical History: Reports: Hx Bronchitis Denies: Hx Asthma, Hx COPD, Hx Pneumonia Neurological Medical History: Denies: Hx Cerebrovascular Accident, Hx Migraine, Hx Seizures Endocrine Medical History: Reports: Hx Diabetes Mellitus Type 2 Renal/ Medical History: Denies: Hx Peritoneal Dialysis Musculoskeltal Medical History: Reports Hx Arthritis Skin Medical History: Reports Hx Eczema Psychiatric Medical History: Reports: Hx Anxiety, Hx Depression Past Surgical History: Reports: Hx Abdominal Surgery - APPENDIX, Hx Appendectomy , Hx Cardiac Catheterization - -, stents x2, Hx Coronary Stent - x2, Hx Hysterectomy, Hx Tubal Ligation. Denies: Hx Adenoidectomy - Immunizations Hx Diphtheria, Pertussis, Tetanus Vaccination: No Hx Pneumococcal Vaccination: 02/09/16 Review of Systems - Review of Systems -: Yes All other systems reviewed and negative Physical Exam - Vital signs Vitals: Temp Pulse Resp BP Pulse Ox 97.7 F 46 L 20 128/101 H 98 04/15/17 16:21 04/15/17 16:21 04/15/17 16:21 04/15/17 16:21 04/15/17 16:21 Interpretation: Tachycardic - Notes Notes: Physical Exam: GENERAL: VS as per nursing doc. Well-appearing, well-nourished and in no acute distress. HEAD: Atraumatic, normocephalic. EYES: Pupils equal round and reactive to light, extraocular movements intact, sclera anicteric, no conjunctival injection or discharge. ENT: Nares patent, oropharynx clear without exudates. Moist mucous membranes. NECK: Normal range of motion, supple without lymphadenopathy. No JVD. No Carotid Bruits. LUNGS: Breath sounds clear to auscultation bilaterally and equal. No wheezing or rhonchi but she has some very fine bibasilar crackles. HEART: Normal S1S2. Tachycardic with irregularly irregular rate and rhythm. No murmur noted. Equal peripheral pulses. ABDOMEN: Soft, non-tender. No pulsatile mass. EXTREMITIES: Normal range of motion. No calf tenderness. Negative Homans. 1-2 + edema. NEUROLOGICAL: Cranial nerves grossly intact. Normal speech. Normal sensory and motor exams. No gross cerebellar abnormalities. PSYCH: Normal mood, normal affect. SKIN: Warm, dry, no cyanosis, no splinter hemorrhages. Cap refill < 2 sec. Course - Re-evaluation Re-evalutation: 04/15/17 19:[address] Joshua from [facility] cardiology. He recommended the patient start acting metoprolol 25 mg daily as she had tolerated this well in the past and call for an appointment tomorrow. She remained rate controlled with just a single dose of IV diltiazem 20 mg. She is asymptomatic. We will give her a short acting metoprolol tonight and a prescription to start metoprolol in the morning. She understands warning signs to watch for. Her laboratory studies were baseline for her. - Vital Signs Vital signs: Temp Pulse Resp BP Pulse Ox 97.7 F 110 H 20 152/64 H 98 04/15/17 16:21 04/15/17 16:22 04/15/17 18:01 04/15/17 18:01 04/15/17 18:01 - Laboratory Result Diagrams: 04/15/17 16:30 04/15/17 16:30 Laboratory results interpreted by me: 04/15/17 04/15/17 16:30 16:30 Hgb 11.5 L Hct 35.9 L RDW 14.9 H Seg Neutrophils % 78.7 H Sodium 134.5 L BUN 48 H Creatinine 2.05 H Est GFR ( Amer) 28 L Est GFR (Non-Af Amer) 23 L Glucose 200 H - EKG Interpretation by Me Rate: Tachycardia Rhythm: A.Fib - Rate approximately 143 with nonspecific intraventricular conduction delay and nonspecific T waves. Discharge - Discharge Clinical Impression: Atrial fibrillation with rapid ventricular response Diabetes mellitus Qualifiers: Diabetes mellitus type: type 2 Diabetes mellitus complication status: with neurologic complications Diabetes mellitus fdc insulin use: unspecified fdc insulin use status Condition: Good Disposition: HOME, SELF-CARE Additional Instructions: Return for worsening or concern. Rest tonight. Start the Metoprolol in the morning. Prescriptions: Metoprolol Succinate 25 mg PO DAILY #30 tab.er.24h
[2017-04-15] MEDS ORDERED: DILTIAZEM HCL INJ 25 MG/5 ML VIAL IV ONE (16:55)
[2017-04-15] MEDS ORDERED: DILTIAZEM HCL/D5W 125 ML IV PRN (16:55)
[2017-04-15 17:13] LABS: ANION GAP 9 (5-19); BLOOD UREA NITROGEN 48 mg/dL (7-20); CALCIUM 8.5 mg/dL (8.4-10.2); CARBON DIOXIDE 26 mmol/L (22-30); CHLORIDE 100 mmol/L (98-107); CREATININE RESULT 2.05 mg/dL (0.52-1.25); GLUCOSE 200 mg/dL (75-110); POTASSIUM 4.3 mmol/L (3.6-5.0); SODIUM 134.5 mmol/L (137-145)
[2017-04-15] MEDS ORDERED: METOPROLOL TARTRATE 25 MG TABLET PO ONE (19:01)
[2017-04-15 19:35] VITALS: BP 146/74
--- NOTE | 2017-04-15 22:12 | EKG REPORT ---
SEVERITY:- ABNORMAL ECG - ATRIAL FIBRILLATION NONSPECIFIC INTRAVENTRICULAR CONDUCTION DELAY PROBABLE ANTERIOR INFARCT, ACUTE : Confirmed by: Joceline Humphries MD 15-Apr-2017 22:11:21
== END 2017-04-15 19:35 | disposition home or self-care (01) ==
LOC: ER 15:44
DX: E11.49 Type 2 diabetes mellitus with other diabetic neurological complication (principal); I48.91 Unspecified atrial fibrillation; R07.9 Chest pain, unspecified; Z98.890 Other specified postprocedural states; Z79.4 Long term (current) use of insulin
CPT/HCPCS: 93005; 99285; 96374; 36415; 83735; 85025; 80048; 84484; 71020; 93010; J3490; A9270

== ENCOUNTER → 2017-05-09 | Outpatient (CLI) | payer MEDICARE, BC ==
[2017-05-09 14:25] LABS: ANION GAP 10 (5-19); BLOOD UREA NITROGEN 35 mg/dL (7-20); CALCIUM 8.5 mg/dL (8.4-10.2); CARBON DIOXIDE 29 mmol/L (22-30); CHLORIDE 97 mmol/L (98-107); CREATININE RESULT 2.01 mg/dL (0.52-1.25); GLUCOSE 106 mg/dL (75-110); MAGNESIUM 2.1 mg/dL (1.6-2.3); POTASSIUM 4.1 mmol/L (3.6-5.0); SODIUM 135.8 mmol/L (137-145)
== END ==
LOC: OD 13:06
PROVIDERS: ATTEND Internal Medicine Nephrology
DX: N18.4 Chronic kidney disease, stage 4 (severe) (principal); I50.9 Heart failure, unspecified; D64.9 Anemia, unspecified; R80.9 Proteinuria, unspecified
CPT/HCPCS: 36415; 80048; 83735

== ENCOUNTER 2017-05-16 14:49 | Emergency (ER) | payer MEDICARE, BC ==
--- NOTE | 2017-05-16 15:34 | ER Document Report ---
ED Medical Screen (RME) - General Chief Complaint: Arrhythmia Stated Complaint: HEART PALPITATIONS Time Seen by Provider: 05/16/17 15:27 Mode of Arrival: Wheelchair Information source: Patient TRAVEL OUTSIDE OF THE [place] IN LAST 30 DAYS: No - HPI Patient complains to provider of: Irregular heart rate Onset: This morning Onset/Duration: Sudden Associated Symptoms: Shortness of breath Notes: 05/16/17 15:33 Patient is an 81-year-old female with a history of atrial fibrillation who was recently cardioverted while at [facility], this morning she started to notice an irregular heart rate once again and developed some shortness of breath, denies any chest pain, she denies any medication noncompliance, was at her wastewater technician's office today when they confirmed atrial fibrillation and sent her to the emergency room for evaluation - Related Data Allergies/Adverse Reactions: celecoxib [From Celebrex] Allergy (Unknown, Verified 05/16/17 15:04) ciprofloxacin [From Cipro] Allergy (Unknown, Verified 05/16/17 15:04) Past Medical History - Past Medical History Cardiac Medical History: Reports: Hx Atrial Fibrillation, Hx Congestive Heart Failure, Hx Coronary Artery Disease, Hx Heart Attack, Hx Hypercholesterolemia, Hx Hypertension Pulmonary Medical History: Reports: Hx Bronchitis Denies: Hx Asthma, Hx COPD, Hx Pneumonia Neurological Medical History: Denies: Hx Cerebrovascular Accident, Hx Migraine, Hx Seizures Endocrine Medical History: Reports: Hx Diabetes Mellitus Type 2 Renal/ Medical History: Denies: Hx Peritoneal Dialysis Musculoskeltal Medical History: Reports Hx Arthritis Skin Medical History: Reports Hx Eczema Psychiatric Medical History: Reports: Hx Anxiety, Hx Depression Past Surgical History: Reports: Hx Abdominal Surgery - APPENDIX, Hx Appendectomy , Hx Cardiac Catheterization - , stents x2, Hx Coronary Stent - x2, Hx Hysterectomy, Hx Tubal Ligation. Denies: Hx Adenoidectomy - Immunizations Hx Diphtheria, Pertussis, Tetanus Vaccination: No Physical Exam - Vital signs Vitals: Temp Pulse Resp BP Pulse Ox 97.6 F 87 20 131/99 H 97 05/16/17 15:05 05/16/17 15:05 05/16/17 15:05 05/16/17 15:05 05/16/17 15:05 Course - Vital Signs Vital signs: Temp Pulse Resp BP Pulse Ox 97.6 F 87 20 131/99 H 97 05/16/17 15:05 05/16/17 15:05 05/16/17 15:05 05/16/17 15:05 05/16/17 15:05
[2017-05-16 15:57] LABS: ABSOLUTE BASOPHILS # (AUTO) 0.1 10^3/uL (0.0-0.2); ABSOLUTE EOSINOPHILS # (AUTO) 0.1 10^3/uL (0.0-0.6); ABSOLUTE LYMPHOCYTES (AUTO) 0.9 10^3/uL (0.5-4.7); ABSOLUTE MONOCYTES (AUTO) 0.5 10^3/uL (0.1-1.4); ABSOLUTE NEUT (AUTO) 5.8 10^3/uL (1.7-8.2); BASOPHILS % (AUTO) 0.8 % (0-2); EOSINOPHILS % (AUTO) 1.1 % (0-6); HEMATOCRIT 37.4 % (36.0-47.0); HGB HCT DIFFERENCE -1.4; LYMPHOCYTES % (AUTO) 11.9 % (13-45); MEAN CORPUSCULAR HEMOGLOBIN 29.5 pg (27.0-33.4); MEAN CORPUSCULAR HGB CONC 32.1 g/dL (32.0-36.0); MEAN CORPUSCULAR VOLUME 92 fl (80-97); MONOCYTES % (AUTO) 6.3 % (3-13); RED BLOOD COUNT 4.07 10^6/uL (3.72-5.28); RED CELL DISTRIBUTION WIDTH 14.3 % (11.5-14.0); SEGMENTED NEUTROPHILS % (AUTO) 79.9 % (42-78); WHITE BLOOD COUNT 7.3 10^3/uL (4.0-10.5)
[2017-05-16] MEDS ORDERED: METOPROLOL TARTRATE 25 MG TABLET PO ONE (16:15)
--- NOTE | 2017-05-16 16:20 | ER Document Report ---
ED General - General Chief Complaint: Arrhythmia Stated Complaint: HEART PALPITATIONS Time Seen by Provider: 05/16/17 15:27 Mode of Arrival: Wheelchair Information source: Patient Notes: This is an 81-year-old female with a history of atrial fibrillation (Eliquis, aspirin) status post multiple ablations (last ablation April 22) who presents to the emergency room with fatigue and dyspnea since this morning. Patient states she can usually feel when she goes into atrial fibrillation and she has felt that way. The patient's aide states that his heart rate is been anywhere from the mid 80s to the 115 range. The patient denies shortness of breath or chest pain while she is lying in the stretcher. TRAVEL OUTSIDE OF THE [place] IN LAST 30 DAYS: No - HPI Onset: This morning Onset/Duration: Gradual Quality of pain: No pain Severity: None Pain Level: Denies Associated symptoms: Shortness of breath. denies: Chills, Fever Exacerbated by: Denies Relieved by: Denies Similar symptoms previously: Yes Recently seen / treated by doctor: Yes - Related Data Allergies/Adverse Reactions: celecoxib [From Celebrex] Allergy (Unknown, Verified 05/16/17 15:04) ciprofloxacin [From Cipro] Allergy (Unknown, Verified 05/16/17 15:04) Past Medical History - General Information source: Patient - Social History Smoking Status: Never Smoker Cigarette use (# per day): No Chew tobacco use (# tins/day): No Frequency of alcohol use: None Drug Abuse: None Lives with: Family Family History: Reviewed & Not Pertinent Patient has suicidal ideation: No Patient has homicidal ideation: No - Past Medical History Cardiac Medical History: Reports: Hx Atrial Fibrillation, Hx Congestive Heart Failure, Hx Coronary Artery Disease, Hx Heart Attack, Hx Hypercholesterolemia, Hx Hypertension Pulmonary Medical History: Reports: Hx Bronchitis Denies: Hx Asthma, Hx COPD, Hx Pneumonia Neurological Medical History: Denies: Hx Cerebrovascular Accident, Hx Migraine, Hx Seizures Endocrine Medical History: Reports: Hx Diabetes Mellitus Type 2 Renal/ Medical History: Denies: Hx Peritoneal Dialysis Musculoskeltal Medical History: Reports Hx Arthritis Skin Medical History: Reports Hx Eczema Psychiatric Medical History: Reports: Hx Anxiety, Hx Depression Past Surgical History: Reports: Hx Abdominal Surgery - APPENDIX, Hx Appendectomy , Hx Cardiac Catheterization - -, stents x2, Hx Coronary Stent - x2, Hx Hysterectomy, Hx Tubal Ligation. Denies: Hx Adenoidectomy - Immunizations Hx Diphtheria, Pertussis, Tetanus Vaccination: No Hx Pneumococcal Vaccination: 02/09/16 Review of Systems - Review of Systems Constitutional: denies: Chills, Fever EENT: No symptoms reported Cardiovascular: See HPI Respiratory: See HPI Gastrointestinal: No symptoms reported Genitourinary: No symptoms reported Female Genitourinary: No symptoms reported Musculoskeletal: No symptoms reported Skin: No symptoms reported Hematologic/Lymphatic: No symptoms reported Neurological/Psychological: No symptoms reported Physical Exam - Vital signs Vitals: Temp Pulse Resp BP Pulse Ox 97.6 F 87 20 131/99 H 97 05/16/17 15:05 05/16/17 15:05 05/16/17 15:05 05/16/17 15:05 05/16/17 15:05 Notes: Physical exam: GENERAL: 81-year-old female, alert and oriented 3, no acute distress HEAD: Atraumatic, normocephalic. EYES: Pupils equal round and reactive to light, extraocular movements intact, sclera anicteric, conjunctiva are normal. ENT: TMs normal, nares patent, oropharynx clear without exudates. Moist mucous membranes. NECK: Normal range of motion, supple without lymphadenopathy or JVD. LUNGS: Breath sounds clear to auscultation bilaterally and equal. No wheezes rales or rhonchi. HEART: 6 systolic murmur at the left lateral sternal border regular rate and rhythm without murmurs, rubs or gallops. ABDOMEN: Soft, normoactive bowel sounds. No tenderness to palpation. No guarding, no rebound. No masses appreciated. EXTREMITIES: Normal range of motion, no pitting or edema. No clubbing or cyanosis. NEUROLOGICAL: Cranial nerves II through XII grossly intact. Normal speech, extremities PSYCH: Normal mood, normal affect. SKIN: Warm, Dry, normal turgor, no rashes or lesions noted. Course - Re-evaluation Re-evalutation: 05/16/17 23:40 Symptoms resolved while she observed in the ER. She was given metoprolol and changed to 25 mg twice daily. I was able to get a hold of Dr. Casas later in the evening (he was in a STEMI procedure well I tried to get him earlier). I explained the plan and he agreed with that. Patient will follow-up in the cardiology office on Friday. I have given them a copy of all of today's reports an EKG to bring to the office. - Vital Signs Vital signs: Temp Pulse Resp BP Pulse Ox 97.6 F 85 20 139/92 H 98 05/16/17 15:05 05/16/17 20:11 05/16/17 20:11 05/16/17 20:11 05/16/17 20:11 - Laboratory Result Diagrams: 05/16/17 15:40 05/16/17 15:40 Laboratory results interpreted by me: 05/16/17 05/16/17 05/16/17 15:40 15:40 15:40 RDW 14.3 H Seg Neutrophils % 79.9 H Lymphocytes % 11.9 L BUN 37 H Creatinine 2.37 H Est GFR ( Amer) 24 L Est GFR (Non-Af Amer) 20 L Glucose 318 H Calcium 8.2 L AST 38 H Alkaline Phosphatase 133 H NT-Pro-B Natriuret Pep 91580 H Total Protein 6.0 L Albumin 3.1 L - EKG Interpretation by Me Rate: Normal Rhythm: A.Fib - EKG shows atrial fibrillation with a ventricular rate of 95, left bundle branch block this patient does have a history of a left bundle branch block) Discharge - Discharge Clinical Impression: Atrial fibrillation Qualifiers: Atrial fibrillation type: paroxysmal Qualified Code(s): I48.0 - Paroxysmal atrial fibrillation Condition: Stable Disposition: HOME, SELF-CARE Instructions: Atrial Fibrillation ([facility]) Additional Instructions: Recommendations: Continue your current medicines We are going to increase the metoprolol to 25 mg twice a day for the weekend. Follow-up with the lot attendant on Friday. If the lot attendant, bring a copy of today's EKG and lab work with you. He starts to feel bad over the weekend, return to the emergency room (you may need to be transferred to [place] in that case) Referrals: MASOUD GALEAS MD [Primary Care Provider] - Follow up as needed
[2017-05-16 16:26] LABS: ALANINE AMINOTRANSFERASE 39 U/L (9-52); ALBUMIN 3.1 g/dL (3.5-5.0); ALKALINE PHOSPHATASE 133 U/L (38-126); ANION GAP 12 (5-19); ASPARTATE AMINO TRANSFERASE 38 U/L (14-36); BILIRUBIN,DIRECT 0.4 mg/dL (0.0-0.4); BILIRUBIN,TOTAL 0.4 mg/dL (0.2-1.3); BLOOD UREA NITROGEN 37 mg/dL (7-20); CALCIUM 8.2 mg/dL (8.4-10.2); CARBON DIOXIDE 25 mmol/L (22-30); CHLORIDE 103 mmol/L (98-107); CREATINE KINASE 30 U/L (30-135); CREATININE RESULT 2.37 mg/dL (0.52-1.25); GLUCOSE 318 mg/dL (75-110); SODIUM 139.7 mmol/L (137-145)
[2017-05-16 16:37] LABS: CREATINE KINASE MB 0.76 ng/mL (<4.55); TROPONIN I 0.013 ng/mL
--- NOTE | 2017-05-16 16:41 | RADIOLOGY REPORT (SQ) ---
EXAM DESCRIPTION: CHEST PA/LAT COMPLETED DATE/TIME: 05/16/2017 4:13 pm REASON FOR STUDY: sob COMPARISON: 04/15/2017 EXAM PARAMETERS: NUMBER OF VIEWS: two views TECHNIQUE: Digital Frontal and Lateral radiographic views of the chest acquired. RADIATION DOSE: NA LIMITATIONS: none FINDINGS: LUNGS AND PLEURA: No opacities, masses or pneumothorax. No pleural effusion. MEDIASTINUM AND HILAR STRUCTURES: No masses or contour abnormalities. HEART AND VASCULAR STRUCTURES: Heart normal size. No evidence for failure. BONES: No acute findings. HARDWARE: None in the chest. OTHER: No other significant finding. IMPRESSION: NO SIGNIFICANT RADIOGRAPHIC FINDING IN THE CHEST. TECHNICAL DOCUMENTATION: JOB ID: [id number] [employer]- All Rights Reserved
--- NOTE | 2017-05-16 17:50 | EKG REPORT ---
SEVERITY:- ABNORMAL ECG - ATRIAL FIBRILLATION VS SINUS WITH APCs, REC REPEAT EKG LEFT BUNDLE BRANCH BLOCK : Confirmed by: Jaret Johnston 16-May-2017 17:50:07
[2017-05-16 20:12] VITALS: BP 139/92
== END 2017-05-16 19:40 | disposition home or self-care (01) ==
LOC: ER 14:49
DX: I48.0 Paroxysmal atrial fibrillation (principal); R06.00 Dyspnea, unspecified; R53.83 Other fatigue; Z79.02 Long term (current) use of antithrombotics/antiplatelets; Z79.82 Long term (current) use of aspirin; Z88.3 Allergy status to other anti-infective agents; I50.9 Heart failure, unspecified; I25.10 Atherosclerotic heart disease of native coronary artery without angina pectoris; I25.2 Old myocardial infarction; E78.00 Pure hypercholesterolemia, unspecified; I11.0 Hypertensive heart disease with heart failure; E11.9 Type 2 diabetes mellitus without complications; Z90.710 Acquired absence of both cervix and uterus
CPT/HCPCS: 93005; 99285; 36415; 82553; 82550; 83735; 85025; 80053; 84484; 83880; 71020; 93010; A9270

== ENCOUNTER 2018-01-06 23:29 | Emergency (ER) | payer MEDICARE, BC ==
--- NOTE | 2018-01-06 23:45 | ER Document Report ---
ED General - General Stated Complaint: FALL/LEG PAIN Time Seen by Provider: 01/06/18 23:39 Notes: 82-year-old lady with A. francisca on Fabi presents with a fall mechanical tripped over her feet, about a half an hour prior to arrival. She had her left chest wall and right leg. She complain only of right leg pain. No chest pain shortness of breath. Also hit her left face but has no headache or neck pain. No numbness or tingling. Brought in by EMS. TRAVEL OUTSIDE OF THE [place] IN LAST 30 DAYS: No - Related Data Allergies/Adverse Reactions: celecoxib [From Celebrex] Allergy (Unknown, Verified 05/16/17 15:04) ciprofloxacin [From Cipro] Allergy (Unknown, Verified 05/16/17 15:04) Past Medical History - Social History Smoking Status: Unknown if Ever Smoked Family History: Reviewed & Not Pertinent - Past Medical History Cardiac Medical History: Reports: Hx Atrial Fibrillation, Hx Congestive Heart Failure, Hx Coronary Artery Disease, Hx Heart Attack, Hx Hypercholesterolemia, Hx Hypertension Pulmonary Medical History: Reports: Hx Bronchitis Denies: Hx Asthma, Hx COPD, Hx Pneumonia Neurological Medical History: Denies: Hx Cerebrovascular Accident, Hx Migraine, Hx Seizures Endocrine Medical History: Reports: Hx Diabetes Mellitus Type 2 Renal/ Medical History: Denies: Hx Peritoneal Dialysis Musculoskeltal Medical History: Reports Hx Arthritis Skin Medical History: Reports Hx Eczema Psychiatric Medical History: Reports: Hx Anxiety, Hx Depression Past Surgical History: Reports: Hx Abdominal Surgery - APPENDIX, Hx Appendectomy , Hx Cardiac Catheterization - -, stents x2, Hx Coronary Stent - x2, Hx Hysterectomy, Hx Tubal Ligation. Denies: Hx Adenoidectomy - Immunizations Hx Diphtheria, Pertussis, Tetanus Vaccination: No Hx Pneumococcal Vaccination: 02/09/16 Review of Systems - Review of Systems Notes: REVIEW OF SYSTEMS GEN: Denies fever, chills, weight loss ENT: Denies sore throat, nasal discharge, ear pain EYES: Denies blurry vision, eye pain, discharge CV: Denies chest pain, palpitations, edema RESP: Denies cough, shortness of breath, wheezing GI: Denies abdominal pain, nausea, vomiting, diarrhea MSK: D right calf pain SKIN: Bruising hematoma right leg LYMPH: Denies swollen glands/lymph nodes NEURO: Denies headache, focal weakness or numbness, dizziness PSYCH: Denies depression, suicidal or homicidal ideation PHYSICAL EXAMINATION General: No acute distress, well-nourished Head: Abrasions and bruising on the right periorbital, malar and mandibular area without mandibular tenderness, normal mouth opening, no malocclusion or tenderness throughout the face and head., normocephalic ENT: Mouth normal, oropharynx moist, no exudates or tonsillar enlargement Eyes: Conjunctiva normal, pupils equal, lids normal Neck: No JVD, supple, no guarding CVS: Normal rate, regular rhythm, no murmurs Resp: No resp distress, equal and normal breath sounds bilaterally GI: Nondistended, soft, no tenderness to palpation, no rebound or guarding Ext: Soft tissue hematoma in the left calf. No tibial or fibular tenderness. No ankle pain or tenderness. No knee tenderness. Full range of motion in all leg joints. Back: No CVA or midline TTP Skin: No rash, warm Lymphatic: No lymphadeopathy noted Neuro: Awake, alert. Face symmetric. GCS 15. Course - Re-evaluation Re-evalutation: 01/06/18 23:44 Fall from standing with soft tissue hematoma to the right leg and evidence of facial trauma. GCS 15. Hypertensive. Lungs are clear and there is no crepitus or deformity or tenderness of the chest wall despite a small bruise at the left costal margin. Pneumothorax hemothorax unlikely but will obtain chest x-ray. Head and C-spine CT ordered. Does not require lower extremity imaging as there is no bony tenderness, deformity and she was able to bear weight. I will compress her soft tissue hematoma as I do think it will expand but at this time she is neurovascularly intact in the lower leg. 01/07/18 01:08 CT head and C-spine negative. Chest x-ray negative. Patient ambulated without issue. Discharge home with hematoma precautions. I have discussed with the patient there likely diagnosis, aftercare plan, follow-up plans and my usual and customary return precautions. They verbalized understanding of this. - Diagnostic Test Radiology reviewed: Image reviewed, Reports reviewed Discharge - Discharge Clinical Impression: Traumatic hematoma Facial contusion Qualifiers: Encounter type: initial encounter Qualified Code(s): S00.83XA - Contusion of other part of head, initial encounter Condition: Good Disposition: HOME, SELF-CARE Instructions: Hematoma ([facility]), Scalp Hematoma ([facility]) Referrals: MASOUD GALEAS MD [Primary Care Provider] - Follow up in 3-5 days
--- NOTE | 2018-01-07 00:38 | RADIOLOGY REPORT (SQ) ---
EXAM DESCRIPTION: CHEST SINGLE VIEW CLINICAL HISTORY: fall octavio COMPARISON: 05/16/2017 FINDINGS: Single frontal view of the chest. Cardia megaly. Atherosclerotic calcification of the aortic arch. No consolidation, pneumothorax, or pleural effusion. No displaced rib fractures identified. Upper abdominal soft tissues are unremarkable. IMPRESSION: 1. No acute pulmonary process identified. Cardiomegaly.
--- NOTE | 2018-01-07 00:43 | RADIOLOGY REPORT (SQ) ---
EXAM DESCRIPTION: CT HEAD WITHOUT CLINICAL HISTORY: fall eliquis COMPARISON: None available TECHNIQUE: Axial CT of the head obtained from the skull apex to the skull base without contrast. FINDINGS: No acute intracranial hemorrhage identified. No mass, mass effect, shift of the midline, abnormal extra-axial fluid collection or CT evidence of acute ischemic change identified. The ventricular system and sulcal spaces are moderately enlarged compatible with moderate cerebral atrophy. Scattered areas of hypodensity throughout the supratentorial white matter are nonspecific and may be related to chronic small vessel ischemic change. The visualized paranasal sinuses and the mastoids are clear. No skull fracture identified. Visualized orbits and globes are unremarkable. Atherosclerotic calcification of the intracranial internal carotid arteries. DLP: 995.66 mGy-cm IMPRESSION: 1. No acute intracranial abnormality by CT criteria. This exam was performed according to our departmental dose-optimization program, which includes automated exposure control, adjustment of the mA and/or kV according to patient size and/or use of iterative reconstruction technique.
--- NOTE | 2018-01-07 00:48 | RADIOLOGY REPORT (SQ) ---
EXAM DESCRIPTION: CT CERVICAL SPINE WITHOUT CLINICAL HISTORY: fall on eliquis COMPARISON: None available TECHNIQUE: Axial CT of the cervical spine obtained without contrast. FINDINGS: No evidence of acute subluxation of the cervical spine. The atlantoaxial, atlantodental, and occipitoatlantal intervals are preserved. No fracture identified. Vertebral body height preserved. Prevertebral soft tissues are unremarkable. Mild to moderate loss of intervertebral disc height throughout the cervical spine. Mild anterolisthesis of C4 over C5 measuring 2 mm is likely degenerative. Moderate to severe multilevel facet arthropathy. Uncovertebral and endplate spurring throughout the cervical spine. Mild osseous neural foraminal narrowing at C5/6 and C6/7. No definite central canal narrowing. Visualized skull base is intact. No fracture of the visualized facial bones. Visualized mastoid air cells and paranasal sinuses are well aerated. Visualized thyroid is unremarkable. No cervical lymphadenopathy. No pneumothorax in the visualized lung apices. Atherosclerotic vascular calcification. DLP: 395.46 mGy-cm IMPRESSION: 1. No acute fracture or subluxation of the cervical spine. 2. Moderate to severe multilevel degenerative change throughout the cervical spine. This exam was performed according to our departmental dose-optimization program, which includes automated exposure control, adjustment of the mA and/or kV according to patient size and/or use of iterative reconstruction technique.
[2018-01-07 01:15] VITALS: BP 209/64
== END 2018-01-07 01:26 | disposition home or self-care (01) ==
LOC: ER 23:29
DX: S00.11XA Contusion of right eyelid and periocular area, initial encounter (principal); S00.83XA Contusion of other part of head, initial encounter; S80.12XA Contusion of left lower leg, initial encounter; S80.11XA Contusion of right lower leg, initial encounter; S20.212A Contusion of left front wall of thorax, initial encounter; M79.661 Pain in right lower leg; W01.0XXA Fall on same level from slipping, tripping and stumbling without subsequent striking against object, initial encounter; Y92.009 Unspecified place in unspecified non-institutional (private) residence as the place of occurrence of the external cause; I48.91 Unspecified atrial fibrillation; Z79.01 Long term (current) use of anticoagulants; I25.10 Atherosclerotic heart disease of native coronary artery without angina pectoris; I25.2 Old myocardial infarction; I10 Essential (primary) hypertension; E11.9 Type 2 diabetes mellitus without complications; Z88.8 Allergy status to other drugs, medicaments and biological substances; Z88.1 Allergy status to other antibiotic agents; Z95.5 Presence of coronary angioplasty implant and graft
CPT/HCPCS: 70450; 71045; 72125; 99284

== ENCOUNTER 2018-01-11 18:39 | Emergency (ER) | payer MEDICARE, BC ==
--- NOTE | 2018-01-11 19:28 | ER Document Report ---
ED Medical Screen (RME) - General Chief Complaint: Fall Injury Stated Complaint: FALL/LEG INJURY Time Seen by Provider: 01/11/18 19:26 Mode of Arrival: Wheelchair Information source: Patient TRAVEL OUTSIDE OF THE [place] IN LAST 30 DAYS: No - HPI Patient complains to provider of: fall/hematoma Onset: Other - pt fell earlier last week -- seen here with neg CT of head and neck -- now c/o R lower leg pain and hematoma that has developed there - Related Data Allergies/Adverse Reactions: celecoxib [From Celebrex] Allergy (Unknown, Verified 05/16/17 15:04) ciprofloxacin [From Cipro] Allergy (Unknown, Verified 05/16/17 15:04) codeine Allergy (Verified 01/11/18 18:40) Past Medical History - Past Medical History Cardiac Medical History: Reports: Hx Atrial Fibrillation, Hx Congestive Heart Failure, Hx Coronary Artery Disease, Hx Heart Attack, Hx Hypercholesterolemia, Hx Hypertension Pulmonary Medical History: Reports: Hx Bronchitis Denies: Hx Asthma, Hx COPD, Hx Pneumonia Neurological Medical History: Denies: Hx Cerebrovascular Accident, Hx Migraine, Hx Seizures Endocrine Medical History: Reports: Hx Diabetes Mellitus Type 2 Renal/ Medical History: Denies: Hx Peritoneal Dialysis Musculoskeltal Medical History: Reports Hx Arthritis Skin Medical History: Reports Hx Eczema Psychiatric Medical History: Reports: Hx Anxiety, Hx Depression Past Surgical History: Reports: Hx Abdominal Surgery - APPENDIX, Hx Appendectomy , Hx Cardiac Catheterization - -, stents x2, Hx Coronary Stent - x2, Hx Hysterectomy, Hx Tubal Ligation. Denies: Hx Adenoidectomy - Immunizations Hx Diphtheria, Pertussis, Tetanus Vaccination: No Physical Exam - Vital signs Vitals: Temp Pulse Resp BP Pulse Ox 98.2 F 118 H 16 104/68 97 01/11/18 19:17 01/11/18 19:17 01/11/18 19:17 01/11/18 19:17 01/11/18 19:17 Course - Vital Signs Vital signs: Temp Pulse Resp BP Pulse Ox 98.2 F 118 H 16 104/68 97 01/11/18 19:17 01/11/18 19:17 01/11/18 19:17 01/11/18 19:17 01/11/18 19:17
--- NOTE | 2018-01-11 20:53 | RADIOLOGY REPORT (SQ) ---
EXAM DESCRIPTION: TIBIA FIBULA RIGHT COMPLETED DATE/TIME: 01/11/2018 8:42 pm REASON FOR STUDY: trauma COMPARISON: None. NUMBER OF VIEWS: Two views. TECHNIQUE: Two radiographic images acquired of the right tibia and fibula to include the knee and an kle in at least one projection. LIMITATIONS: None. FINDINGS: MINERALIZATION: Osteopenia. BONES: No acute fracture or dislocation. No worrisome bone lesions. SOFT TISSUES: Focal soft tissue swelling medially mid calf OTHER: No other significant finding. IMPRESSION: Focal soft tissue swelling. No fracture. TECHNICAL DOCUMENTATION: JOB ID: [id number] [employer]- All Rights Reserved
[2018-01-11 21:10] LABS: ABSOLUTE EOSINOPHILS # (AUTO) 0.1 10^3/uL (0.0-0.6); ABSOLUTE LYMPHOCYTES (AUTO) 1.2 10^3/uL (0.5-4.7); ABSOLUTE MONOCYTES (AUTO) 0.6 10^3/uL (0.1-1.4); ABSOLUTE NEUT (AUTO) 5.5 10^3/uL (1.7-8.2); BASOPHILS % (AUTO) 0.5 % (0-2); EOSINOPHILS % (AUTO) 1.2 % (0-6); HEMATOCRIT 30.7 % (36.0-47.0); HEMOGLOBIN 10.1 g/dL (12.0-15.5); LYMPHOCYTES % (AUTO) 15.7 % (13-45); MEAN CORPUSCULAR HEMOGLOBIN 28.8 pg (27.0-33.4); MEAN CORPUSCULAR HGB CONC 32.9 g/dL (32.0-36.0); MEAN CORPUSCULAR VOLUME 88 fl (80-97); MONOCYTES % (AUTO) 8.3 % (3-13); PLATELET COUNT 250 10^3/uL (150-450); RED BLOOD COUNT 3.51 10^6/uL (3.72-5.28); RED CELL DISTRIBUTION WIDTH 16.7 % (11.5-14.0); SEGMENTED NEUTROPHILS % (AUTO) 74.3 % (42-78); TOTAL CELLS COUNTED % (AUTO) 100 %; WHITE BLOOD COUNT 7.4 10^3/uL (4.0-10.5)
[2018-01-11 21:22] LABS: ALANINE AMINOTRANSFERASE 30 U/L (9-52); ALBUMIN 3.4 g/dL (3.5-5.0); ALKALINE PHOSPHATASE 102 U/L (38-126); ANION GAP 8 (5-19); ASPARTATE AMINO TRANSFERASE 31 U/L (14-36); BILIRUBIN,DIRECT 0.5 mg/dL (0.0-0.4); BILIRUBIN,TOTAL 0.5 mg/dL (0.2-1.3); BLOOD UREA NITROGEN 41 mg/dL (7-20); CALCIUM 8.8 mg/dL (8.4-10.2); CARBON DIOXIDE 29 mmol/L (22-30); CHLORIDE 99 mmol/L (98-107); GLUCOSE 241 mg/dL (75-110); SODIUM 136.4 mmol/L (137-145); TOTAL PROTEIN 6.1 g/dL (6.3-8.2)
[2018-01-11] MEDS ORDERED: HYDROCODONE/ACETAMINOPHEN 5-325 MG (6 TAB/ER DISP) PO PRN (23:32)
--- NOTE | 2018-01-11 23:37 | ER Document Report ---
ED Extremity Problem, Lower - General Chief Complaint: Fall Injury Stated Complaint: FALL/LEG INJURY Time Seen by Provider: 01/11/18 19:26 Mode of Arrival: Wheelchair Notes: Patient is an 82-year-old female comes emergency department for chief complaint right leg pain and concerns of worsening appearance after a fall about 5 days ago. She was evaluated here, had imaging of the head, neck, chest but no imaging of the lower extremity. She is on Eliquis. She states there is a bubble forming at the leg. No fever, patient can walk on the leg but with some discomfort. Patient is unsure if she directly hit the leg with a fall, she cannot remember. Family at bedside. TRAVEL OUTSIDE OF THE [place] IN LAST 30 DAYS: No - Related Data Allergies/Adverse Reactions: celecoxib [From Celebrex] Allergy (Unknown, Verified 05/16/17 15:04) ciprofloxacin [From Cipro] Allergy (Unknown, Verified 05/16/17 15:04) codeine Allergy (Verified 01/11/18 18:40) Past Medical History - General Information source: Patient, Relative - Social History Smoking Status: Never Smoker Chew tobacco use (# tins/day): No Frequency of alcohol use: None Drug Abuse: None Lives with: Family Family History: Reviewed & Not Pertinent Patient has suicidal ideation: No Patient has homicidal ideation: No - Past Medical History Cardiac Medical History: Reports: Hx Atrial Fibrillation, Hx Congestive Heart Failure, Hx Coronary Artery Disease, Hx Heart Attack, Hx Hypercholesterolemia, Hx Hypertension Pulmonary Medical History: Reports: Hx Bronchitis Denies: Hx Asthma, Hx COPD, Hx Pneumonia Neurological Medical History: Denies: Hx Cerebrovascular Accident, Hx Migraine, Hx Seizures Endocrine Medical History: Reports: Hx Diabetes Mellitus Type 2 Renal/ Medical History: Denies: Hx Peritoneal Dialysis Musculoskeltal Medical History: Reports Hx Arthritis Skin Medical History: Reports Hx Eczema Psychiatric Medical History: Reports: Hx Anxiety, Hx Depression Past Surgical History: Reports: Hx Abdominal Surgery - APPENDIX, Hx Appendectomy , Hx Cardiac Catheterization - -, stents x2, Hx Coronary Stent - x2, Hx Hysterectomy, Hx Tubal Ligation. Denies: Hx Adenoidectomy - Immunizations Hx Diphtheria, Pertussis, Tetanus Vaccination: No Hx Pneumococcal Vaccination: 02/09/16 Review of Systems - Review of Systems Constitutional: No symptoms reported EENT: No symptoms reported Cardiovascular: No symptoms reported Respiratory: No symptoms reported Gastrointestinal: No symptoms reported Genitourinary: No symptoms reported Female Genitourinary: No symptoms reported Musculoskeletal: See HPI Skin: See HPI Hematologic/Lymphatic: No symptoms reported Neurological/Psychological: No symptoms reported Physical Exam - Vital signs Vitals: Temp Pulse Resp BP Pulse Ox 98.2 F 118 H 16 104/68 97 01/11/18 19:17 01/11/18 19:17 01/11/18 19:17 01/11/18 19:17 01/11/18 19:17 Interpretation: Normal - General General appearance: Appears well In distress: None - HEENT Head: Other - Resolving ecchymosis mainly over the left lateral aspect of the face Eyes: Normal Conjunctiva: Normal Extraocular movements intact: Yes Eyelashes: Normal Pupils: PERRL Sinus: Normal Nasal: Normal Mouth/Lips: Normal Mucous membranes: Normal Pharynx: Normal Neck: Normal - Respiratory Respiratory status: No respiratory distress Chest status: Nontender Breath sounds: Normal Chest palpation: Normal - Cardiovascular Rhythm: Regular, Tachycardia Heart sounds: Normal auscultation, S1 appreciated, S2 appreciated Murmur: No Normal capillary refill: Yes - Abdominal Inspection: Normal Distension: No distension Bowel sounds: Normal Tenderness: Nontender Organomegaly: No organomegaly - Back Back: Normal, Nontender. No: Vertebra tenderness - Extremities General upper extremity: Normal inspection, Nontender, Normal strength, Normal temperature General lower extremity: Other - Right lower extremity with ecchymosis over the lateral mid calf, there is a blister in the middle of the ecchymosis which is consistent with a hematoma blister. There is tenderness over the area of ecchymosis but this is actually mild, no rigidity, no severe swelling, patient able to move leg without any difficulty, able to ambulate on the leg with mild discomfort. Normal distal neurovascular exam. - Neurological Neuro grossly intact: Yes Cognition: Normal Orientation: AAOx4 Km Coma Scale Eye Opening: Spontaneous Km Coma Scale Verbal: Oriented Km Coma Scale Motor: Obeys Commands Km Coma Scale Total: 15 Speech: Normal Motor strength normal: LUE, RUE, LLE, RLE Sensory: Normal - Psychological Associated symptoms: Normal affect, Normal mood - Skin Skin Temperature: Warm Skin Moisture: Dry Skin Color: Normal Course - Re-evaluation Re-evalutation: Patient is alert, responsive, oriented, cooperative. Vital signs showed mild tachycardia, patient states her leg hurts. X-ray shows soft tissue swelling with no fracture or dislocation. Blood tests from triage reviewed, shows no leukocytosis, acidosis, or concerning acute abnormality. Patient has chronic kidney disease, appears to be at baseline. Exam does not show any severe tenderness suggestive of compartment syndrome, she can ambulate on the leg but with some discomfort. There is a blister hematoma on the leg. Padded compression dressing was placed. Patient will be provided with pain management for this. Because of fall risk she will be given this to go home with and to take at home. Patient will also follow closely with orthopedics for additional management. I discussed with Dr. Nguyen. Discussed expectations, follow-up, return precautions in detail with patient and family. They state understanding and agreement with plan. Patient still has borderline tachycardia on exam, she just had her leg wrapped and she is still complaining of some pain. No fever, no evidence of cellulitis , patient and family asking to go home. Discharged with return precautions. - Vital Signs Vital signs: Temp Pulse Resp BP Pulse Ox 97.8 F 109 H 16 140/82 H 99 01/11/18 23:55 01/11/18 23:55 01/11/18 23:55 01/11/18 23:55 01/11/18 23:55 - Laboratory Result Diagrams: 01/11/18 20:55 01/11/18 20:55 Laboratory results interpreted by me: 01/11/18 01/11/18 20:55 20:55 RBC 3.51 L Hgb 10.1 L Hct 30.7 L RDW 16.7 H Sodium 136.4 L BUN 41 H Creatinine 2.59 H Est GFR ( Amer) 21 L Est GFR (Non-Af Amer) 18 L Glucose 241 H Direct Bilirubin 0.5 H Total Protein 6.1 L Albumin 3.4 L Discharge - Discharge Clinical Impression: Right leg pain, Hematoma Condition: Stable Disposition: HOME, SELF-CARE Additional Instructions: X-ray of the leg shows soft tissue swelling but no fracture, dislocation, or other concerning a normality. Examination is consistent with a hematoma. A soft compression dressing has been placed. Elevate the leg, wear the dressing, take the pain medication if needed, if you do take the pain medication also take the Colace stool softener to avoid constipation. Follow-up closely with orthopedics referral for additional evaluation and management. Return if you worsen in anyway including if the area pops/ruptures and you have bleeding that will not respond to compression for about 10-15 minutes or if the bleeding is very heavy. Also return for any other concerning symptoms including severe pain, spreading redness, fever of 100.4 or greater, or any other concerning symptoms. Prescriptions: Docusate Sodium [Colace 100 mg Capsule] 100 mg PO ASDIR PRN #30 capsule PRN Reason: Hydrocodone/Acetaminophen [Thida 5-325 mg Tablet] 0.5 - 1 tab PO ASDIR #8 tablet Referrals: NAUN URBINA MD [ACTIVE STAFF] - Follow up in 3-5 days
[2018-01-11 23:56] VITALS: BP 140/82
== END 2018-01-12 00:05 | disposition home or self-care (01) ==
LOC: ER 18:39
DX: S80.11XA Contusion of right lower leg, initial encounter (principal); W19.XXXA Unspecified fall, initial encounter; I25.10 Atherosclerotic heart disease of native coronary artery without angina pectoris; E11.22 Type 2 diabetes mellitus with diabetic chronic kidney disease; I12.9 Hypertensive chronic kidney disease with stage 1 through stage 4 chronic kidney disease, or unspecified chronic kidney disease; N18.9 Chronic kidney disease, unspecified; I25.2 Old myocardial infarction; I48.91 Unspecified atrial fibrillation; Z79.01 Long term (current) use of anticoagulants; Z88.1 Allergy status to other antibiotic agents; Z88.5 Allergy status to narcotic agent; Z88.8 Allergy status to other drugs, medicaments and biological substances; Z95.5 Presence of coronary angioplasty implant and graft; R00.0 Tachycardia, unspecified
CPT/HCPCS: 99284; 36415; 85025; 80053; 73590; A9270